=== PATIENT | female | born 1945 | race Caucasian/White ===

== ENCOUNTER 2018-06-04 14:31 | Inpatient (IN) | payer MEDICARE ==
[2018-06-04] MEDS ORDERED: Zithromax 500 MG/ 250 ML NaCl Premix 500 MG/250 ML IVPB IV STA (16:02)
[2018-06-04] MEDS ORDERED: PROVENTIL 2.5 MG/3 ML NEB IH ONE ×2 (16:02→16:17)
[2018-06-04] MEDS ORDERED: solu-MEDROL 125 MG IV ONE (16:02)
[2018-06-04] MEDS ORDERED: ROCEPHIN 1 Gm-D5w 50 ml Bag** 1 G/50 ML IVPB IV STA (16:02)
--- NOTE | 2018-06-04 16:10 | ERPHSYRPT ---
- History of Present Illness Time Seen by Provider: 06/04/18 15:00 Source: patient Exam Limitations: clinical condition Patient Subjective Stated Complaint: pt sent over to ER from Jose Ruby's office for SOB. pt has been treated for PNE for 4 days, has one more day of Levaquin left. wears 3L oxygen at home. o2 sat 80% at [facility] office pt reports oxygen tank was not working right and not getting oxygen when she first got to office. [facility] DISABILITIES SERVICES OFFICER placed patient on 3L with nonrebreather and sent to ER for admission - per daughter Triage Nursing Assessment: pt in ER waiting area with nonrebreather in place, removed NRB and placed o2 3L per n/c (pt wears at home) o2 sat 98%. resp labored , SOB, nonprod cough. states was coughing up green phlegm 3 days ago. wheezes noted right upper lobe, very diminished throughout. Physician History: PATIENT WITH A HISTORY OF COPD COMPLAINS OF A PRODUCTIVE COUGH, DIFFICULTY BREATHING AND PRODUCTIVE COUGH FOR 3-4 DAYS, ASSOCIATED WITH EXERTIONAL DYSPNEA DENIES CHEST PAIN, FEVER OR CHILLS. Timing/Duration: day(s) Activities at Onset: activity Severity of Dyspnea-Max: moderate Severity of Dyspnea-Current: moderate Possible Cause: occasional episodes, chronic episodes Modifying Factors: Improves With: coughing, exertion Associated Symptoms: cough, productive cough Allergies/Adverse Reactions: No Known Drug Allergies Allergy (Unverified 06/04/18 15:42) Home Medications: Albuterol 2.5 mg/3 ml Neb [Proventil 2.5 mg/3 ml Neb] 2.5 mg IH Q4H PRN PRN 06/04/18 [History] Albuterol 8 gm Mdi Hfa [Ventolin Hfa MDI] 90 mcg IH Q4-6HPRN PRN 06/04/18 [History] Allopurinol 300 mg [Zyloprim 300 mg] 300 mg PO DAILY 06/04/18 [History] Amlodipine Besylate 5 mg PO DAILY 06/04/18 [History] Ascorbic Acid [Vitamin C] 500 mg PO BID 06/04/18 [History] Cetirizine HCl [Allergy Relief] 10 mg PO DAILY 06/04/18 [History] Levothyroxine Sodium 75 mcg PO DAILY 06/04/18 [History] Potassium 99 mg PO BID 06/04/18 [History] Ranitidine HCl [Zantac] 150 mg PO DAILY 06/04/18 [History] Theophylline Anhydrous 300 mg* [Theodur 300MG] 300 mg PO DAILY 06/04/18 [ History] Tiotropium [place] Inhaler [Spiriva 18 Mcg/Cap Inhaler] 1 puff IH DAILY [History] Hx Tetanus, Diphtheria Vaccination/Date Given: No Hx Influenza Vaccination/Date Given: Yes Hx Pneumococcal Vaccination/Date Given: Yes Immunizations Up to Date: Yes - Review of Systems Constitutional: No Fever, No Chills Eyes: No Symptoms Ears, Nose, & Throat: No Symptoms Respiratory: Cough, Dyspnea on Exertion (GOMEZ), No Dyspnea Cardiac: No Symptoms, No Chest Pain, No Edema, No Syncope Abdominal/Gastrointestinal: Constipation, No Abdominal Pain, No Nausea, No Vomiting, No Diarrhea Genitourinary Symptoms: No Symptoms, No Dysuria Musculoskeletal: No Symptoms, No Back Pain, No Neck Pain Skin: No Rash Neurological: No Dizziness, No Focal Weakness, No Sensory Changes Psychological: No Symptoms Endocrine: No Symptoms All Other Systems: Reviewed and Negative - Past Medical History Pertinent Past Medical History: Yes Neurological History: No Pertinent History ENT History: Cataracts Cardiac History: No Pertinent History Respiratory History: COPD Endocrine Medical History: No Pertinent History Musculoskeletal History: Arthritis GI Medical History: No Pertinent History History: No Pertinent History Psycho-Social History: No Pertinent History Female Reproductive Disorders: No Pertinent History - Past Surgical History Past Surgical History: Yes Neuro Surgical History: No Pertinent History Cardiac: No Pertinent History Respiratory: No Pertinent History Gastrointestinal: No Pertinent History Female Surgical History: Hysterectomy, Other Other Surgical History: lumpectomy and radiation, states has cancer in right breast but cannot have surgery yet - Social History Smoking Status: Former smoker Exposure to second hand smoke: No Drug Use: none Patient Lives Alone: Yes - Nursing Vital Signs Nursing Vital Signs: Initial Vital Signs Temperature 98.3 F 06/04/18 14:32 Pulse Rate 80 06/04/18 14:32 Respiratory Rate 28 H 06/04/18 14:32 Blood Pressure 172/100 06/04/18 14:32 O2 Sat by Pulse Oximetry 99 06/04/18 14:32 Pain Scale Pain Intensity 0 - Physical Exam General Appearance: mild distress Eye Exam: PERRL/EOMI Ears, Nose, Throat Exam: hearing grossly normal Neck Exam: normal inspection Respiratory Exam: diminished breath sounds, wheezing Cardiovascular/Chest Exam: normal heart sounds Abdominal/Gastrointestinal Exam: soft Extremity Exam: non-tender, normal range of motion Peripheral Pulses Exam: carotid (R): 2+, carotid (L): 2+, femoral (R): 2+, femoral (L): 2+, dorsalis-pedis (R): 2+, dorsalis-pedis (L): 2+ Neurologic Exam: alert, normal mood/affect Skin Exam: normal color, diaphoresis SpO2 Interpretation: normal SpO2: 99 - Course EKG Interpreted by Me: RATE, Sinus Rhythm, Sinus Tach (RATE 96), NORMAL AXIS - Radiology Exams Chest X-ray Interpretation: Discussed w/ radiologist (PERIPHERAL RIGHT MIDDLE LOBE INFILTRATE/INFILTRATE) Ordered Tests: Active Orders 24 hr Category Date Time Status Corporate Planning Manager STAT Care 06/04/18 16:03 Active EKG-ER Only STAT Care 06/04/18 16:02 Active IV Insertion STAT Care 06/04/18 16:02 Active Oxygen-ED Only Nasal Cannula 2 lpm Care 06/04/18 16:02 Active CHEST 1 VIEW (PORTABLE) Stat Exams 06/04/18 16:03 Completed BLOOD CULTURE Stat Lab 06/04/18 16:40 Received BMP Stat Lab 06/04/18 16:45 Completed CBC W DIFF Stat Lab 06/04/18 16:45 Completed MAGNESIUM Stat Lab 06/04/18 16:45 Completed PT INR [PROTIME WITH INR] Stat Lab 06/04/18 16:45 Completed TROPONIN Q3H Lab 06/04/18 16:45 Completed TROPONIN Q3H Lab 06/04/18 19:15 Ordered TROPONIN Q3H Lab 06/04/18 22:15 Ordered TROPONIN Q3H Lab 06/05/18 01:15 Ordered TROPONIN Q3H Lab 06/05/18 04:15 Ordered Peak Expiratory Flow Rate ONCE RT 06/04/18 16:33 Active Respiratory Nebulizer STAT RT 06/04/18 16:04 Completed Respiratory Therapy Assessment DAILY RT 06/04/18 16:33 Active Transfer Order Routine Transfer 06/04/18 Ordered Medication Summary Generic Name Dose Route Start Last Admin Trade Name Freq PRN Reason Stop Dose Admin Sodium Chloride 1,000 mls @ 20 mls/hr 06/04/18 16:15 06/04/18 17:43 Sodium Chloride 0.9% 1000 Ml IV 07/04/18 16:14 20 mls/hr .Q24H [place] Administration Discontinued Medications Generic Name Dose Route Start Last Admin Trade Name Joseq PRN Reason Stop Dose Admin Albuterol Sulfate 10 mg 06/04/18 16:02 Proventil 2.5 Mg/3 Ml Neb IH 06/04/18 16:03 STAT ONE Albuterol Sulfate Confirm 06/04/18 16:17 Proventil 2.5 Mg/3 Ml Neb Administered 06/04/18 16:18 Dose 2.5 mg IH .STK-MED ONE Albuterol Sulfate Confirm 06/04/18 16:18 Proventil Solution 2.5 Mg/0.5 Ml Administered 06/04/18 16:19 Dose 10 mg IH .STK-MED ONE Albuterol Sulfate 10 mg 06/04/18 16:29 06/04/18 16:30 Proventil Solution 2.5 Mg/0.5 Ml IH 06/04/18 16:30 10 mg STAT ONE Administration Ceftriaxone Sodium/Dextrose 1 g in 50 mls @ 100 mls/hr 06/04/18 16:02 17:46 Rocephin 1 Gm-D5w 50 Ml Bag IV 06/04/18 16:31 100 ml/hr STAT STA 100 mls/hr Administration Azithromycin 500 mg in 250 mls @ 250 mls/hr 06/04/18 16:02 06/04/18 18:13 Zithromax 500 Mg/ 250 Ml Nacl Premix IV 06/04/18 17:01 250 ml/hr STAT STA 250 mls/hr Administration Ceftriaxone Sodium/Dextrose Confirm 06/04/18 17:38 Rocephin 1 Gm-D5w 50 Ml Bag Administered 06/04/18 17:39 Dose 1 g in 50 mls @ ud IV .STK-MED ONE Azithromycin Confirm 06/04/18 18:11 Zithromax 500 Mg/ 250 Ml Nacl Premix Administered 06/04/18 18:12 Dose 500 mg in 250 mls @ ud IV .STK-MED ONE Levalbuterol HCl 1.25 mg 06/04/18 18:20 Xopenex 1.25 Mg/0.5 Ml Ud Nebule IH 06/04/18 18:21 STAT ONE Levalbuterol HCl Confirm 06/04/18 18:25 Xopenex 1.25 Mg/0.5 Ml Ud Nebule Administered 06/04/18 18:26 Dose 1.25 mg IH .STK-MED ONE Methylprednisolone Sodium Succinate 125 mg 06/04/18 16:02 06/04/18 17:44 Solu-Medrol 125 Mg IV 06/04/18 16:03 125 mg STAT ONE Administration Methylprednisolone Sodium Succinate Confirm 06/04/18 17:38 Solu-Medrol 125 Mg Administered 06/04/18 17:39 Dose 125 mg .ROUTE .STK-MED ONE Sodium Chloride Confirm 06/04/18 16:18 Sodium Chloride 3 Ml Ud Nebules Administered 06/04/18 16:19 Dose 9 ml IH .STK-MED ONE Sodium Chloride 7 ml 06/04/18 16:38 06/04/18 16:39 Sodium Chloride 3 Ml Ud Nebules IH 06/04/18 16:39 7 ml STAT ONE Administration Lab/Rad Data: Laboratory Result Diagrams 06/04/18 16:45 06/04/18 16:45 Laboratory Results 06/04/18 06/04/18 06/04/18 Range/Units 16:45 16:45 16:45 WBC (4.0-10.5) K/mm3 RBC (4.1-5.4) M/mm3 Hgb (12.0-16.0) gm/dl Hct (35-47) % MCV (78-100) fl MCH (26-32) pg MCHC (32-36) g/dl RDW (11.5-14.0) % Plt Count (150-450) K/mm3 MPV (6-9.5) fl Gran % (36.0-66.0) % Eos # (Auto) (0-0.5) Absolute Lymphs (auto) (1.0-4.6) Absolute Monos (auto) (0.0-1.3) Lymphocytes % (24.0-44.0) % Monocytes % (0.0-12.0) % Eosinophils % (0.00-5.0) % Basophils % (0.0-0.4) % Absolute Granulocytes (1.4-6.9) Basophils # (0-0.4) PT 14.1 H (9.95-12.35) SECONDS INR 1.21 (0.8-3.0) Sodium 142 (137-145) mmol/L Potassium 3.6 (3.5-5.1) mmol/L Chloride 101 (98-107) mmol/L Carbon Dioxide 34 H (22-30) mmol/L Anion Gap 10.4 (5-15) MEQ/L BUN 24 H (7-17) mg/dL Creatinine 1.44 H (0.52-1.04) mg/dL Estimated GFR 37.8 ML/MIN Glucose 104 (74-106) mg/dL Calcium 8.7 (8.4-10.2) mg/dL Magnesium 1.8 (1.6-2.3) mg/dL Troponin I < 0.012 (0.000-0.034) ng/mL 06/04/18 Range/Units 16:45 WBC 4.9 (4.0-10.5) K/mm3 RBC 4.06 L (4.1-5.4) M/mm3 Hgb 12.0 (12.0-16.0) gm/dl Hct 38.5 (35-47) % MCV 94.8 (78-100) fl MCH 29.5 (26-32) pg MCHC 31.2 L (32-36) g/dl RDW 15.2 H (11.5-14.0) % Plt Count 164 (150-450) K/mm3 MPV 11.7 H (6-9.5) fl Gran % 63.9 (36.0-66.0) % Eos # (Auto) 0.14 (0-0.5) Absolute Lymphs (auto) 1.03 (1.0-4.6) Absolute Monos (auto) 0.58 (0.0-1.3) Lymphocytes % 21.1 L (24.0-44.0) % Monocytes % 11.9 (0.0-12.0) % Eosinophils % 2.9 (0.00-5.0) % Basophils % 0.2 (0.0-0.4) % Absolute Granulocytes 3.13 (1.4-6.9) Basophils # 0.01 (0-0.4) PT (9.95-12.35) SECONDS INR (0.8-3.0) Sodium (137-145) mmol/L Potassium (3.5-5.1) mmol/L Chloride (98-107) mmol/L Carbon Dioxide (22-30) mmol/L Anion Gap (5-15) MEQ/L BUN (7-17) mg/dL Creatinine (0.52-1.04) mg/dL Estimated GFR ML/MIN Glucose (74-106) mg/dL Calcium (8.4-10.2) mg/dL Magnesium (1.6-2.3) mg/dL Troponin I (0.000-0.034) ng/mL - Progress Progress: improved Air Movement: fair Progress Note: 06/04/18 16:09 ADMINISTERED CONTINUOUS NEBULIZER ALBUTEROL 10MG OVER 1 HOUR. IV NORMAL SALINE 20ML/HR, SOLUMEDROL 125MG IV, IV ZITHROMAX 500MG, ROCEPHIN 1GM IVPB. Blood Culture(s) Obtained: Yes Antibiotics given: Yes Discussed with Dr.: Mason (DISCUSSED WITH DR MASON AT 1804 FOR ADMISSION) - Departure Time of Disposition: 18:35 Departure Disposition: Observation Clinical Impression: EXACERBATION COPD, PNEUMONIA Condition: Stable Critical Care Time: No Referrals: BELLA CORMIER MD [Primary Care Provider] -
[2018-06-04] MEDS ORDERED: Sodium Chloride 3 ML UD NEBULES IH ONE ×2 (16:18→16:38)
[2018-06-04] MEDS ORDERED: PROVENTIL Solution 2.5 MG/0.5 ML IH ONE ×2 (16:18→16:29)
--- NOTE | 2018-06-04 16:39 | XRAY ---
Indication: Dyspnea. Comparison: June 01, 2018. Portable chest again demonstrates peripheral right middle lobe infiltrate/atelectasis less than before. Remaining heart and left lung normal.
[2018-06-04 17:02] LABS: BASOPHIL % 0.2 % (0.0-0.4); Basophil (Absolute #) 0.01 (0-0.4); Eosinophil % 2.9 % (0.00-5.0); Eosinophil (Absolute #) 0.14 (0-0.5); Granulocyte Absolute (ANC) 3.13 (1.4-6.9); Granulocytes % 63.9 % (36.0-66.0); Hematocrit 38.5 % (35-47); Lymphocyte (Absolute #) 1.03 (1.0-4.6); Lymphocytes % 21.1 % (24.0-44.0); Mean Cell Volume 94.8 fl (78-100); Mean Corpuscular Hgb Concent. 31.2 g/dl (32-36); Mean Platelet Volume 11.7 fl (6-9.5); Monocyte (Absolute #) 0.58 (0.0-1.3); Monocytes % 11.9 % (0.0-12.0); Platelet Count 164 K/mm3 (150-450); Red Blood Count 4.06 M/mm3 (4.1-5.4); Red Cell Distribution Width 15.2 % (11.5-14.0); White Blood Count 4.9 K/mm3 (4.0-10.5)
[2018-06-04 17:05] LABS: Mean Corpuscular Hemoglobin 29.5 pg (26-32)
[2018-06-04 17:22] LABS: INR 1.21 (0.8-3.0); PROTIME 14.1 SECONDS (9.95-12.35)
[2018-06-04 17:31] LABS: ANION GAP 10.4 MEQ/L (5-15); Calcium 8.7 mg/dL (8.4-10.2); Creatinine 1 1.44 mg/dL (0.52-1.04); MAGNESIUM 1.8 mg/dL (1.6-2.3); Potassium 3.6 mmol/L (3.5-5.1)
[2018-06-04] MEDS ORDERED: solu-MEDROL 125 MG ONE (17:38)
[2018-06-04] MEDS ORDERED: ROCEPHIN 1 Gm-D5w 50 ml Bag** 1 G/50 ML IVPB IV ONE (17:38)
[2018-06-04] MEDS: Sodium Chloride 0.9% 1000 ML 1,000 ML IV SCH (17:43)
[2018-06-04] MEDS ORDERED: Zithromax 500 MG/ 250 ML NaCl Premix 500 MG/250 ML IVPB IV ONE (18:11)
[2018-06-04] MEDS ORDERED: Xopenex 1.25 MG/0.5 ML UD NEBULE IH ONE ×2 (18:20→18:25)
[2018-06-04 18:30] LABS: INFLUENZA A NEGATIVE (NEGATIVE); INFLUENZA B NEGATIVE (NEGATIVE); RESPIRATORY SYNCTIAL VIRUS NEGATIVE (Negative)
[2018-06-04] MEDS ORDERED: Xopenex 1.25 MG/0.5 ML UD NEBULE IH PRN (20:09)
[2018-06-04] MEDS: PROVENTIL 2.5 MG/3 ML NEB IH SCH (22:56)
[2018-06-04] MEDS: Klor Con 10 MEQ PO SCH (23:08)
[2018-06-04] MEDS: solu-MEDROL 125 MG IV SCH (23:20)
[2018-06-05] MEDS: PROVENTIL 2.5 MG/3 ML NEB IH SCH ×6 (02:46→23:47)
[2018-06-05] MEDS: Spiriva 18 Mcg/Cap Inhaler IH SCH (06:25)
[2018-06-05] MEDS: solu-MEDROL 125 MG IV SCH ×4 (06:43→23:25)
--- NOTE | 2018-06-05 08:27 | PCM.HP ---
History of Present Illness - Chief Complaint Chief Complaint: Exac COPD, PNE History of Present Illness: is a 73 year old female pt of Dr. Angela with COPD, R breast cancer (dx 12/2017, unable to have mastectomy, not in tx), chronic renal dz, HTN, hypothyroid, osteoarthritis, gout, and anxiety who came to ER from office ([facility]) with RML infiltrate and COPD exacerbation. She had been to on and dx (apparently clinically) with influenza A. CXR was done and then keith was called in (pt says she took the med). She has been feeling SOB with cough and fever x 1 week. Had diarrhea yesterday , which has resolved. Thinks she has some urinary retention due to cystocele which has not been repaired. Thinks urine was darker recently. C/o LE edema bilat recently which is worse than usual. This morning she got up to go to the bathroom but had to use a bedpan because of weakness and SOB. - Review of Systems Constitutional: Fever, Weakness Respiratory: Cough (prod green sputum), Short Of Breath Cardiac: Edema Abdominal/Gastrointestinal: Diarrhea Genitourinary Symptoms: Urinary Retention Psychological: No Anxiety, No Depression, No Suicidal Ideations All Other Systems: Reviewed and Negative Medications & Allergies Home Medications: Home Medication List Albuterol 2.5 mg/3 ml Neb [Proventil 2.5 mg/3 ml Neb] 2.5 mg IH Q4H PRN PRN 06/04/18 [History Confirmed 06/04/18] Albuterol 8 gm Mdi Hfa [Ventolin Hfa MDI] 90 mcg IH Q4-6HPRN PRN 06/04/18 [History Confirmed 06/04/18] Allopurinol 300 mg [Zyloprim 300 mg] 300 mg PO DAILY 06/04/18 [History Confirmed 06/04/18] Amlodipine Besylate 5 mg PO DAILY 06/04/18 [History Confirmed 06/04/18] Ascorbic Acid [Vitamin C] 500 mg PO BID 06/04/18 [History Confirmed 06/04/18] Cetirizine HCl [Allergy Relief] 10 mg PO DAILY PRN 06/04/18 [History Confirmed 06/04/18] Levothyroxine Sodium 75 mcg PO DAILY 06/04/18 [History Confirmed 06/04/18] Potassium 99 mg PO BID 06/04/18 [History Confirmed 06/04/18] Prednisone 10 mg [Deltasone 10 mg] 5 mg PO UD 06/04/18 [History Confirmed 06/04/18] Ranitidine HCl [Zantac] 150 mg PO DAILY 06/04/18 [History Confirmed 06/04/18] Theophylline Anhydrous 300 mg* [Theodur 300MG] 300 mg PO DAILY 06/04/18 [ History Confirmed 06/04/18] Tiotropium [place] Inhaler [Spiriva 18 Mcg/Cap Inhaler] 1 puff IH DAILY [History Confirmed 06/04/18] Allergies/Adverse Reactions: Allergies Allergy/AdvReac Type Severity Reaction Status Date / Time No Known Drug Allergies Allergy Unverified 06/04/18 15:42 - Past Medical History Past Medical History: Yes Neurological History: No Pertinent History ENT History: Cataracts Cardiac History: No Pertinent History Respiratory History: COPD Endocrine Medical History: No Pertinent History Musculoskelatal History: Arthritis GI Medical History: No Pertinent History History: No Pertinent History Pyscho-Social History: No Pertinent History Reproductive Disorders: No Pertinent History Comment: Breast CA - Female History Are you now?: No (hyst) - Past Surgical History Past Surgical History: Yes Neuro Surgical History: No Pertinent History Cardiac History: No Pertinent History Respiratory Surgery: No Pertinent History GI Surgical History: No Pertinent History Female Surgical History: Hysterectomy, Lumpectomy Other Surgical History: lumpectomy and radiation, states has cancer in right breast but cannot have surgery yet - Social History Smoking Status: Former smoker Exposure to second hand smoke: No Alcohol: None Drug Use: none - Physical Exam Vital Signs: Vital Signs - 24 hr Temp Pulse Resp BP Pulse Ox 06/05/18 07:30 91 H 20 97 06/05/18 07:27 98.6 F 98 H 19 142/76 96 06/05/18 04:00 25 H 06/05/18 03:04 97.9 F 88 25 H 144/69 96 06/05/18 02:47 90 18 96 06/05/18 00:00 98.7 F 87 30 H 144/72 95 06/04/18 23:21 98.4 F 94 H 26 H 167/80 90 L 06/04/18 22:57 85 24 96 06/04/18 20:59 97 06/04/18 20:55 91 H 97 06/04/18 20:09 90 L 06/04/18 18:40 97 H 18 153/88 100 06/04/18 18:30 84 20 96 06/04/18 18:29 99 06/04/18 16:33 82 24 98 06/04/18 14:32 98.3 F 80 28 H 172/100 99 Oxygen-Last 24 hours O2 Percentage 4 Liters = 36% O2 Percentage 4 Liters = 36% O2 Percentage 4 Liters = 36% O2 Percentage 4 Liters = 36% O2 Percentage 3 Liters = 32% O2 Percentage 3 Liters = 32% Oxygen Flowrate (L/min)-RT 4 General Appearance: no apparent distress, alert, obese Neurologic Exam: oriented x 3, cooperative Eye Exam: eyes nml inspection Ears, Nose, Throat Exam: moist mucous membranes Neck Exam: normal inspection, non-tender, No lymphadenopathy Respiratory Exam: diminished breath sounds (poor-fair air exchange), prolonged expirations, wheezing (throughout), No crackles/rales, No rhonchi Cardiovascular Exam: regular rate/rhythm, normal heart sounds, No murmur Gastrointestinal/Abdomen Exam: soft, normal bowel sounds, tenderness (epigastrum ), No distention, No mass, No guarding, No rebound Extremity Exam: normal inspection, No pedal edema, No swelling Results - Labs Lab/Micro Results: Lab Results-Last 24 Hours 06/04/18 06/04/18 06/04/18 Range/Units 16:45 16:45 16:45 WBC 4.9 (4.0-10.5) K/mm3 RBC 4.06 L (4.1-5.4) M/mm3 Hgb 12.0 (12.0-16.0) gm/dl Hct 38.5 (35-47) % MCV 94.8 (78-100) fl MCH 29.5 (26-32) pg MCHC 31.2 L (32-36) g/dl RDW 15.2 H (11.5-14.0) % Plt Count 164 (150-450) K/mm3 MPV 11.7 H (6-9.5) fl Gran % 63.9 (36.0-66.0) % Eos # (Auto) 0.14 (0-0.5) Absolute Lymphs (auto) 1.03 (1.0-4.6) Absolute Monos (auto) 0.58 (0.0-1.3) Lymphocytes % 21.1 L (24.0-44.0) % Monocytes % 11.9 (0.0-12.0) % Eosinophils % 2.9 (0.00-5.0) % Basophils % 0.2 (0.0-0.4) % Absolute Granulocytes 3.13 (1.4-6.9) Basophils # 0.01 (0-0.4) PT (9.95-12.35) SECONDS INR (0.8-3.0) Sodium 142 (137-145) mmol/L Potassium 3.6 (3.5-5.1) mmol/L Chloride 101 (98-107) mmol/L Carbon Dioxide 34 H (22-30) mmol/L Anion Gap 10.4 (5-15) MEQ/L BUN 24 H (7-17) mg/dL Creatinine 1.44 H (0.52-1.04) mg/dL Estimated GFR 37.8 ML/MIN Glucose 104 (74-106) mg/dL Calcium 8.7 (8.4-10.2) mg/dL Magnesium 1.8 (1.6-2.3) mg/dL Troponin I < 0.012 (0.000-0.034) ng/mL Influenza Type A Ag (NEGATIVE) Influenza Type B Ag (NEGATIVE) RSV (PCR) (Negative) 06/04/18 06/04/18 06/04/18 Range/Units 16:45 17:15 18:55 WBC (4.0-10.5) K/mm3 RBC (4.1-5.4) M/mm3 Hgb (12.0-16.0) gm/dl Hct (35-47) % MCV (78-100) fl MCH (26-32) pg MCHC (32-36) g/dl RDW (11.5-14.0) % Plt Count (150-450) K/mm3 MPV (6-9.5) fl Gran % (36.0-66.0) % Eos # (Auto) (0-0.5) Absolute Lymphs (auto) (1.0-4.6) Absolute Monos (auto) (0.0-1.3) Lymphocytes % (24.0-44.0) % Monocytes % (0.0-12.0) % Eosinophils % (0.00-5.0) % Basophils % (0.0-0.4) % Absolute Granulocytes (1.4-6.9) Basophils # (0-0.4) PT 14.1 H (9.95-12.35) SECONDS INR 1.21 (0.8-3.0) Sodium (137-145) mmol/L Potassium (3.5-5.1) mmol/L Chloride (98-107) mmol/L Carbon Dioxide (22-30) mmol/L Anion Gap (5-15) MEQ/L BUN (7-17) mg/dL Creatinine (0.52-1.04) mg/dL Estimated GFR ML/MIN Glucose (74-106) mg/dL Calcium (8.4-10.2) mg/dL Magnesium (1.6-2.3) mg/dL Troponin I < 0.012 (0.000-0.034) ng/mL Influenza Type A Ag NEGATIVE (NEGATIVE) Influenza Type B Ag NEGATIVE (NEGATIVE) RSV (PCR) NEGATIVE (Negative) 06/04/18 06/05/18 06/05/18 Range/Units 22:17 01:15 04:15 WBC (4.0-10.5) K/mm3 RBC (4.1-5.4) M/mm3 Hgb (12.0-16.0) gm/dl Hct (35-47) % MCV (78-100) fl MCH (26-32) pg MCHC (32-36) g/dl RDW (11.5-14.0) % Plt Count (150-450) K/mm3 MPV (6-9.5) fl Gran % (36.0-66.0) % Eos # (Auto) (0-0.5) Absolute Lymphs (auto) (1.0-4.6) Absolute Monos (auto) (0.0-1.3) Lymphocytes % (24.0-44.0) % Monocytes % (0.0-12.0) % Eosinophils % (0.00-5.0) % Basophils % (0.0-0.4) % Absolute Granulocytes (1.4-6.9) Basophils # (0-0.4) PT (9.95-12.35) SECONDS INR (0.8-3.0) Sodium (137-145) mmol/L Potassium (3.5-5.1) mmol/L Chloride (98-107) mmol/L Carbon Dioxide (22-30) mmol/L Anion Gap (5-15) MEQ/L BUN (7-17) mg/dL Creatinine (0.52-1.04) mg/dL Estimated GFR ML/MIN Glucose (74-106) mg/dL Calcium (8.4-10.2) mg/dL Magnesium (1.6-2.3) mg/dL Troponin I < 0.012 < 0.012 < 0.012 (0.000-0.034) ng/mL Influenza Type A Ag (NEGATIVE) Influenza Type B Ag (NEGATIVE) RSV (PCR) (Negative) - Radiology Impressions Radiology Exams & Impressions: Radiology Procedures Category Date Time Status CHEST 1 VIEW (PORTABLE) Stat Exams 06/04/18 16:03 Completed - Other Procedures and Tests Respiratory Therapy 06/04/18 16:33 Peak Expiratory Flow Rate ONCE 06/04/18 20:09 Oxygen Nasal Cannula 2 lpm 06/04/18 21:21 Respiratory Therapy Assessment DAILY Assessment/Plan (1) Pneumonia Current Visit: Yes Status: Acute Qualifiers: Pneumonia type: due to unspecified organism Laterality: right Lung location: middle lobe of lung Qualified Code(s): J18.1 - Lobar pneumonia, unspecified organism Assessment & Plan: will order sputum cx. On IV rocephin and zithromax day #2. Methylprednisolone 80mg IV q6h. Code(s): J18.9 - PNEUMONIA, UNSPECIFIED ORGANISM (2) COPD exacerbation Current Visit: Yes Status: Acute Assessment & Plan: Sees Dr. ferguson from [place] [facility]. Code(s): J44.1 - CHRONIC OBSTRUCTIVE PULMONARY DISEASE W (ACUTE) EXACERBATION (3) Renal insufficiency Current Visit: Yes Status: Acute Assessment & Plan: recheck labs in a.m. Cr is actually better than in 2017 when her cr was 1.65 ( now 1.44).Pt would be fine being referred to Dr. Muñoz at [facility] when discharged. (4) Breast cancer Current Visit: Yes Status: Acute Qualifiers: Breast location: unspecified site of breast Estrogen receptor status: negative Patient sex: female Laterality: right Qualified Code(s): C50.911 - Malignant neoplasm of unspecified site of right female breast; Z17.1 - Estrogen receptor negative status [ER-] Assessment & Plan: Pt was supposed to have a mastectomy in Feb but her lung doctor didn't thinkshe could liv surgery. (5) Failure of outpatient treatment Current Visit: Yes Status: Acute Code(s): Z78.9 - OTHER SPECIFIED HEALTH STATUS (6) Leg edema Current Visit: Yes Status: Acute Assessment & Plan: will do echocardiogram. Code(s): R60.0 - LOCALIZED EDEMA (7) Shortness of breath Current Visit: Yes Status: Acute Assessment & Plan: troponins neg x 5 Code(s): R06.02 - SHORTNESS OF BREATH
[2018-06-05] MEDS ORDERED: Zithromax 500 MG/ 250 ML NaCl Premix 500 MG/250 ML IVPB IV SCH (10:00)
[2018-06-05] MEDS ORDERED: ROCEPHIN 1 Gm-D5w 50 ml Bag** 1 G/50 ML IVPB IV SCH (10:00)
[2018-06-05] MEDS ORDERED: NON-FORMULARY ITEM (Cetirizine Hcl [Allergy Relief] 10 MG) PO PRN (10:25)
[2018-06-05] MEDS ORDERED: CLARITIN 10 MG PO PRN (10:27)
[2018-06-05] MEDS: ENOXAPARIN SODIUM SQ SCH (10:54)
[2018-06-05] MEDS: ZYLOPRIM 300 MG PO SCH (10:55)
[2018-06-05] MEDS: THEOPHYLLINE ER 24HR PO SCH (10:55)
[2018-06-05] MEDS: SYNTHROID 75 MCG PO SCH (10:55)
[2018-06-05] MEDS: Pepcid 20 MG PO SCH (10:55)
[2018-06-05] MEDS: Klor Con 10 MEQ PO SCH ×2 (10:55→21:47)
[2018-06-05] MEDS: NORVASC 5 MG PO SCH (10:56)
[2018-06-05] MEDS ORDERED: Phenergan 25 MG INJ IV PRN (13:24)
[2018-06-06] MEDS: PROVENTIL 2.5 MG/3 ML NEB IH SCH ×6 (03:55→23:05)
[2018-06-06 05:54] LABS: Hematocrit 34.1 % (35-47); Hemoglobin 10.7 gm/dl (12.0-16.0); Mean Cell Volume 93.2 fl (78-100); Mean Corpuscular Hemoglobin 29.2 pg (26-32); Mean Corpuscular Hgb Concent. 31.4 g/dl (32-36); Mean Platelet Volume 11.5 fl (6-9.5); Platelet Count 186 K/mm3 (150-450); Red Blood Count 3.66 M/mm3 (4.1-5.4); Red Cell Distribution Width 15.4 % (11.5-14.0); White Blood Count 12.8 K/mm3 (4.0-10.5)
[2018-06-06 06:01] LABS: ANION GAP 11.6 MEQ/L (5-15); Creatinine 1 1.12 mg/dL (0.52-1.04); Potassium 3.5 mmol/L (3.5-5.1)
[2018-06-06] MEDS: solu-MEDROL 125 MG IV SCH ×4 (06:24→23:33)
[2018-06-06] MEDS: Spiriva 18 Mcg/Cap Inhaler IH SCH ×2 (06:53→07:37)
--- NOTE | 2018-06-06 08:40 | PCM.NOTE ---
Date and Time: 06/06/18834 Subjective Assessment: Pt states she is feeling well, had a choking episode this morning that left her short of breath. Maya po. She is visibly short of breath. - Review of Systems Constitutional: No Fever Respiratory: Cough, Short Of Breath Objective Exam General Appearance: no apparent distress, alert, obese Neurologic Exam: oriented x 3, cooperative Skin Exam: normal color, warm, dry, No rash Respiratory Exam: diminished breath sounds (poor air exchange), prolonged expirations, wheezing (slight scattered), other (tachypneic), No crackles/rales , No rhonchi Cardiovascular Exam: regular rate/rhythm, normal heart sounds, No murmur Extremity Exam: normal inspection, No pedal edema, No swelling OBJECTIVE DATA Vital Signs: Vital Signs - 24 hr Temp Pulse Resp BP Pulse Ox 06/06/18 07:18 97.7 F 100 H 20 138/90 97 06/06/18 07:16 101 H 22 97 06/06/18 04:00 98.1 F 100 H 16 145/67 97 06/06/18 03:55 100 H 16 97 06/06/18 00:17 98.6 F 105 H 20 133/74 96 06/06/18 00:00 20 06/05/18 23:47 102 H 32 H 97 06/05/18 21:21 98 F 110 H 37 H 160/75 96 06/05/18 20:00 20 06/05/18 17:28 106 H 20 97 06/05/18 16:00 18 06/05/18 15:51 98.5 F 103 H 18 126/60 91 L 06/05/18 15:18 101 H 24 96 06/05/18 14:14 99 H 20 96 06/05/18 12:00 97.5 F 101 H 19 133/69 99 Oxygen-Last 24 hours O2 Percentage 4 Liters = 36% O2 Percentage 4 Liters = 36% O2 Percentage 4 Liters = 36% O2 Percentage 4 Liters = 36% O2 Percentage 4 Liters = 36% O2 Percentage 4 Liters = 36% Pain Assessment - Last Documented Pain Intensity 0 Pain Scale Used FLACC Intake and Output: Intake & Output 06/03/18 06/04/18 06/05/18 06/06/18 11:59 11:59 11:59 11:59 Intake Total 449 1390 Output Total 200 1020 Balance 249 370 Weight 75.7 kg Lab Results: Lab Results-Last 24 Hours 06/06/18 06/06/18 Range/Units 05:20 05:20 WBC 12.8 H (4.0-10.5) K/mm3 RBC 3.66 L (4.1-5.4) M/mm3 Hgb 10.7 L (12.0-16.0) gm/dl Hct 34.1 L (35-47) % MCV 93.2 (78-100) fl MCH 29.2 (26-32) pg MCHC 31.4 L (32-36) g/dl RDW 15.4 H (11.5-14.0) % Plt Count 186 (150-450) K/mm3 MPV 11.5 H (6-9.5) fl Sodium 140 (137-145) mmol/L Potassium 3.5 (3.5-5.1) mmol/L Chloride 107 (98-107) mmol/L Carbon Dioxide 26 (22-30) mmol/L Anion Gap 11.6 (5-15) MEQ/L BUN 27 H (7-17) mg/dL Creatinine 1.12 H (0.52-1.04) mg/dL Estimated GFR 50.5 ML/MIN Glucose 237 H (74-106) mg/dL Calcium 9.0 (8.4-10.2) mg/dL Radiology Exams: Radiology Procedures Category Date Time Status CHEST 1 VIEW (PORTABLE) Stat Exams 06/04/18 16:03 Completed ECHO W/2D AND DOPPLER [US] Routine Exams 06/05/18 10:05 Taken Assessment/Plan (1) Pneumonia Current Visit: Yes Status: Acute Qualifiers: Pneumonia type: due to unspecified organism Laterality: right Lung location: middle lobe of lung Qualified Code(s): J18.1 - Lobar pneumonia, unspecified organism Assessment & Plan: Clinically not much better this morning. changed IV rocephin and zithromax to IV levaquin. on solumedrol 80mg IV q6h. Code(s): J18.9 - PNEUMONIA, UNSPECIFIED ORGANISM (2) COPD exacerbation Current Visit: Yes Status: Acute Assessment & Plan: on tiotropium inhaler and theophylline po. Code(s): J44.1 - CHRONIC OBSTRUCTIVE PULMONARY DISEASE W (ACUTE) EXACERBATION (3) Shortness of breath Current Visit: Yes Status: Acute Assessment & Plan: D-dimer ordered stat. If positive will need VQ scan. Currently on lovenox 30mg SQ daily. Code(s): R06.02 - SHORTNESS OF BREATH (4) Renal insufficiency Current Visit: Yes Status: Chronic Assessment & Plan: improved eGFR today (5) Breast cancer Current Visit: Yes Status: Acute Qualifiers: Breast location: unspecified site of breast Estrogen receptor status: negative Patient sex: female Laterality: right Qualified Code(s): C50.911 - Malignant neoplasm of unspecified site of right female breast; Z17.1 - Estrogen receptor negative status [ER-] (6) Failure of outpatient treatment Current Visit: Yes Status: Acute Code(s): Z78.9 - OTHER SPECIFIED HEALTH STATUS (7) Leg edema Current Visit: Yes Status: Acute Assessment & Plan: echo pending Code(s): R60.0 - LOCALIZED EDEMA
[2018-06-06] MEDS: SYNTHROID 75 MCG PO SCH (09:12)
[2018-06-06] MEDS: NORVASC 5 MG PO SCH (09:12)
[2018-06-06] MEDS: ENOXAPARIN SODIUM SQ SCH ×2 (09:12→17:21)
[2018-06-06] MEDS: Pepcid 20 MG PO SCH (09:12)
[2018-06-06] MEDS: Klor Con 10 MEQ PO SCH ×2 (09:12→23:33)
[2018-06-06] MEDS: ZYLOPRIM 300 MG PO SCH (09:12)
[2018-06-06] MEDS: THEOPHYLLINE ER 24HR PO SCH (09:13)
[2018-06-06] MEDS: Levofloxacin 500MG/100ML D5W 500 MG/100 ML BAG IV SCH (09:20)
[2018-06-06] MEDS ORDERED: NON-FORMULARY ITEM (Ranitidine Hcl [Zantac] 150 MG) PO SCH (10:00)
[2018-06-06] MEDS ORDERED: PHARMACY DOSING REQUEST MC ONE (10:08)
[2018-06-06] MEDS ORDERED: ENOXAPARIN SODIUM SQ ONE (10:43)
--- NOTE | 2018-06-06 13:21 | ECHO ---
Transthoracic echocardiographic examination and color Doppler was done on 06/05/2018. INDICATION: Shortness of breath, hypertension. The left ventricle was poorly visualized. The estimated global left ventricular ejection fraction is probably in the range of about 50%. There appears to be some mild left ventricular hypertrophy. The mitral valve was not visualized. Left atrium is also not visualized. The aortic valve is poorly visualized. There is a peak systolic gradient of 17 mm of Mercury along the left ventricular outflow tract. The right side chambers are not well visualized. There appears to be some trace tricuspid regurgitation. Right ventricular systolic pressure is 36 mm of Mercury. IMPRESSION: THIS IS A FAIRLY LIMITED STUDY WHICH PRECLUDES ADEQUATE ASSESSMENT OF INTRACARDIAC ANATOMY AND PHYSIOLOGY.
[2018-06-06] MEDS: Sodium Chloride 0.9% 1000 ML 1,000 ML IV SCH ×2 (17:21→17:22)
[2018-06-06] MEDS: ZOLOFT 50 MG TABLET PO SCH (23:33)
[2018-06-07] MEDS: PROVENTIL 2.5 MG/3 ML NEB IH SCH ×6 (02:48→22:52)
[2018-06-07] MEDS: solu-MEDROL 125 MG IV SCH ×3 (05:42→18:17)
[2018-06-07 06:22] LABS: Hematocrit 34.4 % (35-47); Hemoglobin 10.7 gm/dl (12.0-16.0); Mean Corpuscular Hemoglobin 28.9 pg (26-32); Mean Corpuscular Hgb Concent. 31.1 g/dl (32-36); Platelet Count 217 K/mm3 (150-450); Red Cell Distribution Width 15.8 % (11.5-14.0); White Blood Count 17.4 K/mm3 (4.0-10.5)
[2018-06-07 06:32] LABS: ANION GAP 9.7 MEQ/L (5-15); Calcium 9.1 mg/dL (8.4-10.2); Creatinine 1 1.28 mg/dL (0.52-1.04); Potassium 3.8 mmol/L (3.5-5.1)
[2018-06-07] MEDS: Spiriva 18 Mcg/Cap Inhaler IH SCH (07:03)
--- NOTE | 2018-06-07 08:29 | PCM.NOTE ---
Date and Time: 06/07/18823 Subjective Assessment: Pt is feeling better today, less SOB. However, RT notes that just moving from her bed to bathroom made her extremely short of breath. VQ scan is pending. - Review of Systems Constitutional: No Fever Respiratory: Cough, Short Of Breath Objective Exam General Appearance: no apparent distress, alert, obese Neurologic Exam: oriented x 3, cooperative Skin Exam: normal color, warm, dry, No rash Respiratory Exam: diminished breath sounds (fair air exchange), prolonged expirations, wheezing (scattered), No crackles/rales, No rhonchi Cardiovascular Exam: regular rate/rhythm, normal heart sounds, No murmur Gastrointestinal/Abdomen Exam: soft, No tenderness Extremity Exam: normal inspection, No pedal edema, No swelling Back Exam: normal inspection, No rash OBJECTIVE DATA Vital Signs: Vital Signs - 24 hr Temp Pulse Resp BP Pulse Ox 06/07/18 08:12 149/70 06/07/18 07:28 112 H 26 H 91 L 06/07/18 07:00 98 F 112 H 26 H 190/91 91 L 06/07/18 04:00 20 06/07/18 03:00 98.2 F 99 H 20 160/73 97 06/07/18 02:48 99 H 20 97 06/07/18 00:00 24 06/06/18 23:05 110 H 24 97 06/06/18 23:00 98.6 F 113 H 20 147/77 96 06/06/18 20:00 29 H 06/06/18 19:55 98.1 F 115 H 29 H 135/77 95 06/06/18 19:36 109 H 32 H 96 06/06/18 16:48 98 F 114 H 20 141/76 96 06/06/18 16:00 20 06/06/18 15:55 110 H 20 96 06/06/18 13:11 97.6 F 112 H 20 132/93 92 L 06/06/18 12:00 22 06/06/18 10:47 106 H 20 96 Oxygen-Last 24 hours O2 Percentage 4 Liters = 36% O2 Percentage 4 Liters = 36% O2 Percentage 4 Liters = 36% O2 Percentage 4 Liters = 36% O2 Percentage 4 Liters = 36% O2 Percentage 4 Liters = 36% Pain Assessment - Last Documented Pain Intensity 0 Pain Scale Used 0-10 Pain Scale Intake and Output: Intake & Output 06/04/18 06/05/18 06/06/18 06/07/18 11:59 11:59 11:59 11:59 Intake Total 449 1750 2100 Output Total 200 1320 600 Balance 269 373 2983 Weight 75.7 kg 74.2 kg Lab Results: Lab Results-Last 24 Hours 06/06/18 06/07/18 06/07/18 Range/Units 05:00 05:35 05:35 WBC 17.4 H (4.0-10.5) K/mm3 RBC 3.70 L (4.1-5.4) M/mm3 Hgb 10.7 L (12.0-16.0) gm/dl Hct 34.4 L (35-47) % MCV 93.0 (78-100) fl MCH 28.9 (26-32) pg MCHC 31.1 L (32-36) g/dl RDW 15.8 H (11.5-14.0) % Plt Count 217 (150-450) K/mm3 MPV 12.0 H (6-9.5) fl D-Dimer 640 H* (215-500) ng/mL Sodium 141 (137-145) mmol/L Potassium 3.8 (3.5-5.1) mmol/L Chloride 109 H (98-107) mmol/L Carbon Dioxide 26 (22-30) mmol/L Anion Gap 9.7 (5-15) MEQ/L BUN 34 H (7-17) mg/dL Creatinine 1.28 H (0.52-1.04) mg/dL Estimated GFR 43.3 ML/MIN Glucose 208 H (74-106) mg/dL Calcium 9.1 (8.4-10.2) mg/dL Radiology Exams: Radiology Procedures Category Date Time Status CHEST 1 VIEW (PORTABLE) Routine Exams 06/06/18 17:22 Taken ECHO W/2D AND DOPPLER [US] Routine Exams 06/05/18 10:05 Draft PULMONARY PERF VENTILATION [NUCMED] Routine Exams 06/07/18 09:54 Taken Assessment/Plan (1) Pneumonia Current Visit: Yes Status: Acute Qualifiers: Pneumonia type: due to unspecified organism Laterality: right Lung location: middle lobe of lung Qualified Code(s): J18.1 - Lobar pneumonia, unspecified organism Code(s): J18.9 - PNEUMONIA, UNSPECIFIED ORGANISM (2) COPD exacerbation Current Visit: Yes Status: Acute Code(s): J44.1 - CHRONIC OBSTRUCTIVE PULMONARY DISEASE W (ACUTE) EXACERBATION (3) Shortness of breath Current Visit: Yes Status: Acute Assessment & Plan: VQ pending Code(s): R06.02 - SHORTNESS OF BREATH (4) Renal insufficiency Current Visit: Yes Status: Chronic Assessment & Plan: eGFR 43.3 this morning, down from 50. continue to watch. (5) Breast cancer Current Visit: Yes Status: Acute Qualifiers: Breast location: unspecified site of breast Estrogen receptor status: negative Patient sex: female Laterality: right Qualified Code(s): C50.911 - Malignant neoplasm of unspecified site of right female breast; Z17.1 - Estrogen receptor negative status [ER-] (6) Failure of outpatient treatment Current Visit: Yes Status: Acute Code(s): Z78.9 - OTHER SPECIFIED HEALTH STATUS (7) Leg edema Current Visit: Yes Status: Acute Assessment & Plan: she thinks due to chronic steroids. Echo was noncontributory, due to difficult exam technically Code(s): R60.0 - LOCALIZED EDEMA
--- NOTE | 2018-06-07 08:33 | XRAY ---
Indication: Short of breath. Comparison: June 04, 2018. Portable apical lordotic chest demonstrates slightly diminished previous right mid peripheral infiltrate/atelectasis. Remaining heart and lungs normal. No new cardiopulmonary abnormalities.
--- NOTE | 2018-06-07 09:21 | XRAY ---
Indication: Short of breath 2 weeks. Elevated d-dimer. COPD. Pneumonia. Patient received 5.6 mCi technetium 99 MAA for the perfusion portion of the exam. Patient inhaled 35.6 mCi aerosolized technetium 99 DTPA for the ventilation portion of the exam. Multiple planar images obtained. Comparison: None Perfusion images demonstrates segmental defects in the right upper, right middle, and left upper lobes. Ventilation images demonstrates diffuse heterogeneous radiopharmaceutical activity predominantly more central favoring chronic obstructive disease. Impression: 1. Bilateral segmental perfusion defects as detailed. PIOPED criteria for pulmonary embolus is high probability. 2. Probable underlying chronic obstructive disease.
[2018-06-07] MEDS: Levofloxacin 500MG/100ML D5W 500 MG/100 ML BAG IV SCH (09:36)
[2018-06-07] MEDS: SYNTHROID 75 MCG PO SCH (09:37)
[2018-06-07] MEDS: NORVASC 5 MG PO SCH (09:37)
[2018-06-07] MEDS: Klor Con 10 MEQ PO SCH ×2 (09:37→20:27)
[2018-06-07] MEDS: ENOXAPARIN SODIUM SQ SCH (09:37)
[2018-06-07] MEDS: ZYLOPRIM 300 MG PO SCH (09:37)
[2018-06-07] MEDS: Pepcid 20 MG PO SCH (09:37)
[2018-06-07] MEDS: THEOPHYLLINE ER 24HR PO SCH (09:38)
[2018-06-07] MEDS: TYLENOL 325 MG PO PRN (20:21)
[2018-06-07] MEDS: ZOLOFT 50 MG TABLET PO SCH (20:27)
[2018-06-08] MEDS: solu-MEDROL 125 MG IV SCH ×4 (00:21→21:46)
[2018-06-08] MEDS: PROVENTIL 2.5 MG/3 ML NEB IH SCH ×6 (02:58→23:11)
[2018-06-08 06:06] LABS: Hematocrit 35.1 % (35-47); Mean Cell Volume 93.1 fl (78-100); Mean Corpuscular Hgb Concent. 31.3 g/dl (32-36); Mean Platelet Volume 11.7 fl (6-9.5); Platelet Count 221 K/mm3 (150-450); Red Blood Count 3.77 M/mm3 (4.1-5.4); White Blood Count 14.7 K/mm3 (4.0-10.5)
[2018-06-08 06:23] LABS: Mean Corpuscular Hemoglobin 29.1 pg (26-32)
[2018-06-08 06:24] LABS: ANION GAP 10.6 MEQ/L (5-15); Calcium 8.9 mg/dL (8.4-10.2); Creatinine 1 1.29 mg/dL (0.52-1.04); Potassium 4.1 mmol/L (3.5-5.1)
[2018-06-08] MEDS: Spiriva 18 Mcg/Cap Inhaler IH SCH (06:50)
--- NOTE | 2018-06-08 08:48 | PCM.NOTE ---
Date and Time: 06/08/18 0843 Subjective Assessment: Pt's VQ scan yesterday was found to be high probability for PE. Has been on therapeutic dose of lovenox (renal adjustment). Still having some tachypnea overnight. She is concerned about her family history of CHF. Tolerating po. - Review of Systems Constitutional: No Fever Respiratory: Cough, Short Of Breath Objective Exam General Appearance: no apparent distress, alert, obese Neurologic Exam: oriented x 3, cooperative Skin Exam: normal color, warm, dry, No rash Eye Exam: eyes nml inspection Ears, Nose, Throat Exam: moist mucous membranes Neck Exam: normal inspection Respiratory Exam: diminished breath sounds (R>L), prolonged expirations, wheezing (scattered), No crackles/rales, No rhonchi Cardiovascular Exam: regular rate/rhythm, normal heart sounds, No murmur Gastrointestinal/Abdomen Exam: soft, normal bowel sounds, No tenderness Extremity Exam: No pedal edema, No swelling Back Exam: normal inspection, No rash OBJECTIVE DATA Vital Signs: Vital Signs - 24 hr Temp Pulse Resp BP Pulse Ox 06/08/18 08:00 97.5 F 95 H 20 147/80 96 06/08/18 07:46 98 H 18 96 06/08/18 04:00 25 H 06/08/18 03:42 97.2 F 92 H 25 H 165/67 97 06/08/18 02:58 92 H 25 H 97 06/08/18 00:00 97.9 F 112 H 31 H 143/71 96 06/07/18 22:52 102 H 20 96 06/07/18 20:00 98.4 F 107 H 20 136/74 97 06/07/18 19:20 110 H 32 H 98 06/07/18 16:00 98.6 F 114 H 24 141/75 97 06/07/18 12:00 98.2 F 114 H 25 H 137/90 97 06/07/18 11:26 107 H 18 98 Oxygen-Last 24 hours O2 Percentage 4 Liters = 36% O2 Percentage 4 Liters = 36% O2 Percentage 4 Liters = 36% O2 Percentage 4 Liters = 36% O2 Percentage 4 Liters = 36% Oxygen Flowrate (L/min)-RT 4 Pain Assessment - Last Documented Pain Intensity 0 Pain Scale Used 0-10 Pain Scale Intake and Output: Intake & Output 06/05/18 06/06/18 06/07/18 06/08/18 11:59 11:59 11:59 11:59 Intake Total 449 1750 2100 1080 Output Total 200 1320 600 800 Balance 630 609 8710 280 Weight 75.7 kg 74.2 kg 76.8 kg Lab Results: Lab Results-Last 24 Hours 06/08/18 06/08/18 Range/Units 05:33 05:33 WBC 14.7 H (4.0-10.5) K/mm3 RBC 3.77 L (4.1-5.4) M/mm3 Hgb 11.0 L (12.0-16.0) gm/dl Hct 35.1 (35-47) % MCV 93.1 (78-100) fl MCH 29.1 (26-32) pg MCHC 31.3 L (32-36) g/dl RDW 16.0 H (11.5-14.0) % Plt Count 221 (150-450) K/mm3 MPV 11.7 H (6-9.5) fl Sodium 142 (137-145) mmol/L Potassium 4.1 (3.5-5.1) mmol/L Chloride 111 H (98-107) mmol/L Carbon Dioxide 25 (22-30) mmol/L Anion Gap 10.6 (5-15) MEQ/L BUN 41 H (7-17) mg/dL Creatinine 1.29 H (0.52-1.04) mg/dL Estimated GFR 42.9 ML/MIN Glucose 218 H (74-106) mg/dL Calcium 8.9 (8.4-10.2) mg/dL Radiology Exams: Radiology Procedures Category Date Time Status CHEST 1 VIEW (PORTABLE) Routine Exams 06/06/18 17:22 Completed PULMONARY PERF VENTILATION [NUCMED] Routine Exams 06/07/18 09:54 Completed Assessment/Plan (1) Pulmonary emboli Current Visit: Yes Status: Acute Qualifiers: Pulmonary embolism type: other Chronicity: acute Acute cor pulmonale presence: without acute cor pulmonale Qualified Code(s): I26.99 - Other pulmonary embolism without acute cor pulmonale Assessment & Plan: Changing her lovenox to xarelto today. Will need to watch renal function - her eGFR currently is 42.9. I will call her side seam envelope machine operator today, Dr. Gibbons from [place], to let him know. Code(s): I26.99 - OTHER PULMONARY EMBOLISM WITHOUT ACUTE COR PULMONALE (2) Pneumonia Current Visit: Yes Status: Acute Qualifiers: Pneumonia type: due to unspecified organism Laterality: right Lung location: middle lobe of lung Qualified Code(s): J18.1 - Lobar pneumonia, unspecified organism Assessment & Plan: On day #3 of Levaquin. Clinically appears to be feeling better. Code(s): J18.9 - PNEUMONIA, UNSPECIFIED ORGANISM (3) COPD exacerbation Current Visit: Yes Status: Acute Assessment & Plan: on IV solumedrol 80mg q6h, day #3. will decrease to 60mg q8h. Code(s): J44.1 - CHRONIC OBSTRUCTIVE PULMONARY DISEASE W (ACUTE) EXACERBATION (4) Shortness of breath Current Visit: Yes Status: Acute Assessment & Plan: Consulting cardiology; I had ordered an echo earlier in the week since she has had LE edema and of course this shortness of breath. However it was non- contributory due to being technically difficult. So, will see if cardiology has any suggestions regarding further testing. I did let her know that she would likely benefit from outpatient f/u with side seam envelope machine operator (will see Dr. Fox at [place]). Code(s): R06.02 - SHORTNESS OF BREATH (5) Renal insufficiency Current Visit: Yes Status: Chronic (6) Breast cancer Current Visit: Yes Status: Acute Qualifiers: Breast location: unspecified site of breast Estrogen receptor status: negative Patient sex: female Laterality: right Qualified Code(s): C50.911 - Malignant neoplasm of unspecified site of right female breast; Z17.1 - Estrogen receptor negative status [ER-] (7) Failure of outpatient treatment Current Visit: Yes Status: Acute Code(s): Z78.9 - OTHER SPECIFIED HEALTH STATUS (8) Leg edema Current Visit: Yes Status: Acute Code(s): R60.0 - LOCALIZED EDEMA
[2018-06-08] MEDS ORDERED: XARELTO 10 MG TABLET PO SCH (10:00)
[2018-06-08] MEDS: Pepcid 20 MG PO SCH (11:31)
[2018-06-08] MEDS: SYNTHROID 75 MCG PO SCH (11:31)
[2018-06-08] MEDS: NORVASC 5 MG PO SCH (11:31)
[2018-06-08] MEDS: ZYLOPRIM 300 MG PO SCH (11:31)
[2018-06-08] MEDS: THEOPHYLLINE ER 24HR PO SCH (11:32)
[2018-06-08] MEDS: Klor Con 10 MEQ PO SCH ×2 (11:32→21:47)
[2018-06-08] MEDS: Levaquin 250MG/50ML D5W 250 MG/50 ML BAG IV SCH (11:35)
[2018-06-08] MEDS: Levofloxacin 500MG/100ML D5W 500 MG/100 ML BAG IV SCH (11:59)
--- NOTE | 2018-06-08 15:13 | XRAY ---
Indication: PE. Two-dimensional sonogram and color Doppler imaging of the major venous vessels of the left and right leg was performed. Comparison: None No thrombus seen in the examined deep venous vessels of the left and right leg including greater saphenous vein. Veins demonstrate normal compressibility. Venous waveforms are normal with and without augmentation. Impression: Left and right legs negative for DVT.
[2018-06-08] MEDS: ELIQUIS 2.5 MG TABLET PO SCH (21:47)
[2018-06-08] MEDS: ZOLOFT 50 MG TABLET PO SCH (21:47)
[2018-06-09] MEDS: PROVENTIL 2.5 MG/3 ML NEB IH SCH ×6 (03:14→23:03)
[2018-06-09] MEDS: solu-MEDROL 125 MG IV SCH ×3 (06:33→22:26)
[2018-06-09] MEDS: Spiriva 18 Mcg/Cap Inhaler IH SCH (06:55)
[2018-06-09] MEDS: ZYLOPRIM 300 MG PO SCH (09:57)
[2018-06-09] MEDS: Klor Con 10 MEQ PO SCH ×2 (09:58→22:25)
[2018-06-09] MEDS: Pepcid 20 MG PO SCH (09:58)
[2018-06-09] MEDS: ELIQUIS 2.5 MG TABLET PO SCH ×2 (09:58→22:28)
[2018-06-09] MEDS: Levaquin 250MG/50ML D5W 250 MG/50 ML BAG IV SCH (09:58)
[2018-06-09] MEDS: SYNTHROID 75 MCG PO SCH (09:58)
[2018-06-09] MEDS: NORVASC 5 MG PO SCH (09:58)
[2018-06-09] MEDS: THEOPHYLLINE ER 24HR PO SCH (09:59)
[2018-06-09] MEDS ORDERED: Lasix 20 MG/2 ML IV ONE (11:07)
--- NOTE | 2018-06-09 11:56 | PCM.NOTE ---
Date and Time: 06/09/18 1155 Subjective Assessment: doing better - Review of Systems Constitutional: No Fever, No Chills Eyes: No Symptoms Ears, Nose, & Throat: No Symptoms Respiratory: No Cough, No Short Of Breath Cardiac: No Chest Pain, No Edema, No Syncope Abdominal/Gastrointestinal: No Abdominal Pain, No Nausea, No Vomiting, No Diarrhea Genitourinary Symptoms: No Dysuria Musculoskeletal: No Back Pain, No Neck Pain Skin: No Rash Neurological: No Dizziness, No Focal Weakness, No Sensory Changes Psychological: No Symptoms Endocrine: No Symptoms Hematologic/Lymphatic: No Symptoms Immunological/Allergic: No Symptoms Objective Exam General Appearance: no apparent distress, alert Neurologic Exam: alert, oriented x 3, cooperative, normal mood/affect, nml cerebellar function, sensation nml, No motor deficits Skin Exam: normal color, warm, dry Eye Exam: PERRL, EOMI, eyes nml inspection Ears, Nose, Throat Exam: normal ENT inspection, pharynx normal, moist mucous membranes Neck Exam: normal inspection, non-tender, supple, full range of motion Respiratory Exam: normal breath sounds, lungs clear, No respiratory distress Cardiovascular Exam: regular rate/rhythm, normal heart sounds Gastrointestinal/Abdomen Exam: soft, No tenderness, No mass Extremity Exam: normal inspection, normal range of motion Back Exam: normal inspection, normal range of motion, No CVA tenderness, No vertebral tenderness Pelvic Exam: deferred Rectal Exam: deferred OBJECTIVE DATA Vital Signs: Vital Signs - 24 hr Temp Pulse Resp BP Pulse Ox 06/09/18 11:49 20 06/09/18 10:41 109 H 20 97 06/09/18 07:59 18 06/09/18 07:46 98.4 F 95 H 18 166/77 98 06/09/18 07:00 95 H 18 98 06/09/18 04:00 98.6 F 98 H 18 141/70 95 06/09/18 03:14 100 H 18 93 L 06/09/18 00:00 98.3 F 100 H 18 157/75 94 L 06/08/18 23:14 99 H 18 32 L 06/08/18 20:00 98.6 F 113 H 19 122/59 94 L 06/08/18 18:57 106 H 16 95 06/08/18 16:00 98.8 F 111 H 21 146/69 96 06/08/18 15:03 85 20 96 03/29/19 12:00 105 H 21 97 Oxygen-Last 24 hours O2 Percentage 3 Liters = 32% O2 Percentage 4 Liters = 36% O2 Percentage 4 Liters = 36% O2 Percentage 4 Liters = 36% O2 Percentage 4 Liters = 36% O2 Percentage 4 Liters = 36% Pain Assessment - Last Documented Pain Intensity 0 Pain Scale Used 0-10 Pain Scale Intake and Output: Intake & Output 06/06/18 06/07/18 06/08/18 06/09/18 11:59 11:59 11:59 11:59 Intake Total 1750 2100 1440 840 Output Total 8395 990 8683 875 Balance 430 1500 240 -35 Weight 74.2 kg 76.8 kg 76.5 kg Radiology Exams: Radiology Procedures Category Date Time Status VENOUS BILATERAL EXTREMITY [US] Urgent Exams 06/08/18 15:00 Completed Assessment/Plan (1) COPD exacerbation Current Visit: Yes Status: Acute Assessment & Plan: doing better.continue present management Code(s): J44.1 - CHRONIC OBSTRUCTIVE PULMONARY DISEASE W (ACUTE) EXACERBATION (2) Failure of outpatient treatment Current Visit: Yes Status: Acute Code(s): Z78.9 - OTHER SPECIFIED HEALTH STATUS (3) Pneumonia Current Visit: Yes Status: Acute Qualifiers: Pneumonia type: due to unspecified organism Laterality: right Lung location: middle lobe of lung Qualified Code(s): J18.1 - Lobar pneumonia, unspecified organism Assessment & Plan: Medication Report Acetaminophen (Tylenol 325 Mg) 650 mg PO Q6H PRN PRN PRN Reason: PAIN AND/OR FEVER Stop: 07/07/18 20:00 Last Admin: 06/09/18 13:08 Dose: 650 mg MAR PAIN Document 06/09/18 13:08 MJ (Rec: 06/09/18 13:08 MJ [id number]) Reassesment Location Head Pain Scale Used 0-10 Pain Scale Pain Intensity (0-10) 8 Albuterol Sulfate (Proventil 2.5 Mg/3 Ml Neb) 2.5 mg IH Q4HRT [facility] Stop: 07/04/18 22:59 Last Admin: 06/10/18 07:07 Dose: 2.5 mg Nebulizer Treatment Document 06/10/18 07:07 TW (Rec: 06/10/18 07:07 TW [email or web address]) Therapy Aerosol Therapy Subsequent Aerosol Therapy Treatment Method Nebulizer Mask Treatment Tolerance Good Allopurinol (Zyloprim 300 Mg) 300 mg PO DAILY [facility] Stop: 07/05/18 09:59 Last Admin: 06/09/18 09:57 Dose: 300 mg Amlodipine Besylate (Norvasc 5 Mg) 5 mg PO QAM [facility] Stop: 07/05/18 09:59 Last Admin: 06/09/18 09:58 Dose: 5 mg Apixaban (Eliquis 2.5 Mg Tablet) 10 mg PO BID [facility] Stop: 07/08/18 21:59 Last Admin: 06/09/18 22:28 Dose: 10 mg Famotidine (Pepcid 20 Mg) 20 mg PO QAM [facility] Stop: 07/05/18 09:59 Last Admin: 06/09/18 09:58 Dose: 20 mg Levofloxacin/Dextrose (Levaquin 250mg/50ml D5w) 250 mg in 50 mls @ 50 mls/hr IV Q24H10 [facility] Stop: 07/08/18 11:29 Last Admin: 06/09/18 09:58 Dose: 50 mls/hr Levothyroxine Sodium (Synthroid 75 Mcg) 75 mcg PO QAM [facility] Stop: 07/05/18 09:59 Last Admin: 06/09/18 09:58 Dose: 75 mcg Methylprednisolone Sodium Succinate (Solu-Medrol 125 Mg) 60 mg IV Q8HT [facility] Stop: 07/08/18 13:59 Last Admin: 06/10/18 05:39 Dose: 60 mg Potassium Chloride (Klor Con 10 Meq) 10 meq PO BID [facility] Stop: 07/04/18 21:59 Last Admin: 06/09/18 22:25 Dose: 10 meq Promethazine HCl (Phenergan 25 Mg Inj) 12.5 mg IV Q6H PRN PRN PRN Reason: NAUSEA/VOMITING Stop: 07/05/18 13:23 Last Admin: 06/05/18 13:34 Dose: 12.5 mg Sertraline HCl (Zoloft 50 Mg Tablet) 50 mg PO HS [facility] Stop: 07/06/18 21:59 Last Admin: 06/09/18 22:26 Dose: 50 mg Theophylline (Theophylline Er 24hr) 300 mg PO DAILY [facility] Stop: 07/05/18 09:59 Last Admin: 06/09/18 09:59 Dose: 300 mg Tiotropium [place] (Spiriva 18 Mcg/Cap Inhaler) 1 ea IH DAILY [facility] Stop: 07/05/18 06:59 Last Admin: 06/10/18 07:13 Dose: 1 ea MDI Document 06/10/18 07:13 TW (Rec: 06/10/18 07:14 TW [email or web address]) MDI MDI Initial MDI [place] After MDI Yes Discontinued Medications Albuterol Sulfate (Proventil 2.5 Mg/3 Ml Neb) 10 mg IH STAT ONE Stop: 06/04/18 16:03 Last Admin: 06/06/18 07:41 Dose: Not Given Non-Admin Reason: duplicate order Albuterol Sulfate (Proventil Solution 2.5 Mg/0.5 Ml) 10 mg IH STAT ONE Stop: 06/04/18 16:30 Last Admin: 06/04/18 16:30 Dose: 10 mg Enoxaparin Sodium (Enoxaparin Sodium) 30 mg SQ DAILY [facility] Stop: 07/05/18 09:59 Last Admin: 06/06/18 09:12 Dose: 30 mg MAR Injection Site Document 06/06/18 09:12 MS (Rec: 06/06/18 09:12 MS [id number]) Injection Site MAR Injection Site Left Lower Quad Enoxaparin Sodium (Enoxaparin Sodium) 80 mg SQ DAILY [facility] Stop: 07/06/18 10:14 Last Admin: 06/07/18 09:37 Dose: 80 mg MAR Injection Site Document 06/07/18 09:37 BE (Rec: 06/07/18 09:37 BE [id number]) Injection Site MAR Injection Site Left Lower Quad Enoxaparin Sodium (Enoxaparin Sodium) 50 mg SQ ONCE ONE Stop: 06/06/18 10:44 Last Admin: 06/06/18 11:10 Dose: 50 mg MAR Injection Site Document 06/06/18 11:10 BE (Rec: 06/06/18 11:10 BE [id number]) Injection Site MAR Injection Site Left Lower Quad Furosemide (Lasix 20 Mg/2 Ml) 20 mg IV 1XONLY ONE Stop: 06/09/18 11:08 Last Admin: 06/09/18 11:21 Dose: 20 mg Ceftriaxone Sodium/Dextrose (Rocephin 1 Gm-D5w 50 Ml Bag) 1 g in 50 mls @ 100 mls/hr IV STAT [facility] Stop: 06/04/18 16:31 Last Infusion: 06/04/18 18:44 Dose: 0 ml/hr, 0 mls/hr Infusion/Titration Document 06/04/18 18:44 TR (Rec: 06/04/18 18:45 TR [id number]) Dosing & Rate Titration Dose 0 IV Rate 0 Increase/Decrease Infused Cumulative Dose 0 IV Intake Infusion Intake 50 Cumulative Intake (Bag) 50 Cumulative Intake (Rx) 50 Container Volume 0 Volume Adjustment/Waste 0 Sodium Chloride (Sodium Chloride 0.9% 1000 Ml) 1,000 mls @ 20 mls/hr IV .Q24H [facility] Stop: 07/04/18 16:14 Last Admin: 06/06/18 17:22 Dose: 20 mls/hr Infusion/Titration Document 06/06/18 17:22 CHARLES (Rec: 06/06/18 17:23 [id number]) Dosing & Rate IV Rate 20 Increase/Decrease Started/Running Cumulative Dose Not Applicable IV Intake Cumulative Intake (Rx) 1,000 Container Volume 1,000 Volume Adjustment/Waste 0 Azithromycin (Zithromax 500 Mg/ 250 Ml Nacl Premix) 500 mg in 250 mls @ 250 mls /hr IV STAT [facility] Stop: 06/04/18 17:01 Last Admin: 06/04/18 18:13 Dose: 250 ml/hr, 250 mls/hr Med Admininistration (IV,IVP) Document 06/04/18 18:13 TR (Rec: 06/04/18 18:13 TR [id number]) Type of Administration Initial IV Push No Infusion/Titration Document 06/04/18 18:13 TR (Rec: 06/04/18 18:13 TR [id number]) Dosing & Rate Titration Dose 250 IV Rate 250 Increase/Decrease Started IV Intake Container Volume 250 Volume Adjustment/Waste 0 Azithromycin (Zithromax 500 Mg/ 250 Ml Nacl Premix) 500 mg in 250 mls @ 250 mls /hr IV Q24H10 [facility] Stop: 07/05/18 09:59 Last Admin: 06/05/18 12:12 Dose: 250 mls/hr Comments: had to wait on other antibiotic Ceftriaxone Sodium/Dextrose (Rocephin 1 Gm-D5w 50 Ml Bag) 1 g in 50 mls @ 100 mls/hr IV Q24H10 [facility] Stop: 07/05/18 09:59 Last Admin: 06/05/18 10:56 Dose: 100 mls/hr Levofloxacin/Dextrose (Levofloxacin 500mg/100ml D5w) 500 mg in 100 mls @ 100 mls/hr IV Q24H10 [facility] Stop: 07/06/18 09:59 Last Admin: 06/08/18 11:59 Dose: Not Given Non-Admin Reason: CHANGED ORDER Levalbuterol HCl (Xopenex 1.25 Mg/0.5 Ml Ud Nebule) 1.25 mg IH STAT ONE Stop: 06/04/18 18:21 Last Admin: 06/04/18 18:30 Dose: 1.25 mg Nebulizer Treatment Document 06/04/18 18:30 TW (Rec: 06/04/18 18:30 TW [id number]) Therapy Aerosol Therapy Subsequent Aerosol Therapy Treatment Method Nebulizer Mask Treatment Tolerance Good Methylprednisolone Sodium Succinate (Solu-Medrol 125 Mg) 125 mg IV STAT ONE Stop: 06/04/18 16:03 Last Admin: 06/04/18 17:44 Dose: 125 mg Med Admininistration (IV,IVP) Document 06/04/18 17:44 KB (Rec: 06/04/18 17:45 KB [id number]) Type of Administration Initial IV Push Yes Methylprednisolone Sodium Succinate (Solu-Medrol 125 Mg) 80 mg IV Q6HT [facility] Stop: 07/05/18 00:00 Last Admin: 06/08/18 06:52 Dose: 80 mg Non-Formulary Medication (Pharmacy Dosing Request) 1 each MC STAT ONE Stop: 06/06/18 10:09 Last Admin: 06/06/18 17:20 Dose: 1 each Rivaroxaban (Xarelto 10 Mg Tablet) 15 mg PO BID [facility] Stop: 07/08/18 09:59 Last Admin: 06/08/18 11:31 Dose: 15 mg Sodium Chloride (Sodium Chloride 3 Ml Ud Nebules) 7 ml IH STAT ONE Stop: 06/04/18 16:39 Last Admin: 03/25/19 16:39 Dose: 7 ml Code(s): J18.9 - PNEUMONIA, UNSPECIFIED ORGANISM
[2018-06-09] MEDS: TYLENOL 325 MG PO PRN (13:08)
[2018-06-09] MEDS: ZOLOFT 50 MG TABLET PO SCH (22:26)
[2018-06-10] MEDS: PROVENTIL 2.5 MG/3 ML NEB IH SCH ×6 (03:01→23:53)
[2018-06-10] MEDS: solu-MEDROL 125 MG IV SCH ×3 (05:39→22:29)
[2018-06-10] MEDS: Spiriva 18 Mcg/Cap Inhaler IH SCH (07:13)
--- NOTE | 2018-06-10 07:50 | PCM.NOTE ---
Date and Time: 06/10/18747 Subjective Assessment: doing better, no fever - Review of Systems Constitutional: No Fever, No Chills Eyes: No Symptoms Ears, Nose, & Throat: No Symptoms Respiratory: Cough, No Short Of Breath Cardiac: No Chest Pain, No Edema, No Syncope Abdominal/Gastrointestinal: No Abdominal Pain, No Nausea, No Vomiting, No Diarrhea Genitourinary Symptoms: No Dysuria Musculoskeletal: No Back Pain, No Neck Pain Skin: No Rash Neurological: No Dizziness, No Focal Weakness, No Sensory Changes Psychological: No Symptoms Endocrine: No Symptoms Hematologic/Lymphatic: No Symptoms Immunological/Allergic: No Symptoms Objective Exam General Appearance: no apparent distress, alert Neurologic Exam: alert, oriented x 3, cooperative, normal mood/affect, nml cerebellar function, sensation nml, No motor deficits Skin Exam: normal color, warm, dry Eye Exam: PERRL, EOMI, eyes nml inspection Ears, Nose, Throat Exam: normal ENT inspection, pharynx normal, moist mucous membranes Neck Exam: normal inspection, non-tender, supple, full range of motion Respiratory Exam: crackles/rales, rhonchi, wheezing, No respiratory distress Cardiovascular Exam: regular rate/rhythm, normal heart sounds Gastrointestinal/Abdomen Exam: soft, No tenderness, No mass Extremity Exam: normal inspection, normal range of motion Back Exam: normal inspection, normal range of motion, No CVA tenderness, No vertebral tenderness Pelvic Exam: deferred Rectal Exam: deferred OBJECTIVE DATA Vital Signs: Vital Signs - 24 hr Temp Pulse Resp BP Pulse Ox 06/10/18 07:46 98.0 F 98 H 18 154/75 94 L 06/10/18 07:14 92 H 18 96 06/10/18 04:00 97.6 F 97 H 18 140/74 96 06/10/18 03:07 97 H 18 94 L 06/10/18 00:00 98.2 F 104 H 18 144/67 93 L 06/09/18 23:05 102 H 18 95 06/09/18 20:00 98.6 F 96 H 20 146/72 95 06/09/18 19:21 109 H 18 94 L 06/09/18 16:00 98.3 F 117 H 17 125/95 94 L 06/09/18 12:00 98.0 F 112 H 18 169/70 95 06/09/18 11:49 20 06/09/18 10:41 109 H 20 97 06/09/18 07:59 18 Oxygen-Last 24 hours O2 Percentage 4 Liters = 36% O2 Percentage 3 Liters = 32% O2 Percentage 3 Liters = 32% O2 Percentage 3 Liters = 32% O2 Percentage 3 Liters = 32% Oxygen Flowrate (L/min)-RT 3 Pain Assessment - Last Documented Pain Intensity 0 Pain Scale Used 0-10 Pain Scale Intake and Output: Intake & Output 06/07/18 06/08/18 06/09/18 06/10/18 11:59 11:59 11:59 11:59 Intake Total 2100 1440 840 771 Output Total 600 1200 875 800 Balance 1500 240 -35 -29 Weight 74.2 kg 76.8 kg 76.5 kg 77.1 kg Radiology Exams: Radiology Procedures Category Date Time Status VENOUS BILATERAL EXTREMITY [US] Urgent Exams 06/08/18 15:00 Completed Assessment/Plan (1) Pneumonia Current Visit: Yes Status: Acute Qualifiers: Pneumonia type: due to unspecified organism Laterality: right Lung location: middle lobe of lung Qualified Code(s): J18.1 - Lobar pneumonia, unspecified organism Assessment & Plan: improving Code(s): J18.9 - PNEUMONIA, UNSPECIFIED ORGANISM (2) COPD exacerbation Current Visit: Yes Status: Acute Assessment & Plan: improving. Medication Report Acetaminophen (Tylenol 325 Mg) 650 mg PO Q6H PRN PRN PRN Reason: PAIN AND/OR FEVER Stop: 07/07/18 20:00 Last Admin: 06/09/18 13:08 Dose: 650 mg MAR PAIN Document 06/09/18 13:08 MJ (Rec: 06/09/18 13:08 MJ [id number]) Reassesment Location Head Pain Scale Used 0-10 Pain Scale Pain Intensity (0-10) 8 Albuterol Sulfate (Proventil 2.5 Mg/3 Ml Neb) 2.5 mg IH Q4HRT [facility] Stop: 07/04/18 22:59 Last Admin: 06/10/18 07:07 Dose: 2.5 mg Nebulizer Treatment Document 06/10/18 07:07 TW (Rec: 06/10/18 07:07 TW [email or web address]) Therapy Aerosol Therapy Subsequent Aerosol Therapy Treatment Method Nebulizer Mask Treatment Tolerance Good Allopurinol (Zyloprim 300 Mg) 300 mg PO DAILY [facility] Stop: 07/05/18 09:59 Last Admin: 06/09/18 09:57 Dose: 300 mg Amlodipine Besylate (Norvasc 5 Mg) 5 mg PO QAM [facility] Stop: 07/05/18 09:59 Last Admin: 06/09/18 09:58 Dose: 5 mg Apixaban (Eliquis 2.5 Mg Tablet) 10 mg PO BID [facility] Stop: 07/08/18 21:59 Last Admin: 06/09/18 22:28 Dose: 10 mg Famotidine (Pepcid 20 Mg) 20 mg PO QAM [facility] Stop: 07/05/18 09:59 Last Admin: 06/09/18 09:58 Dose: 20 mg Levofloxacin/Dextrose (Levaquin 250mg/50ml D5w) 250 mg in 50 mls @ 50 mls/hr IV Q24H10 [facility] Stop: 07/08/18 11:29 Last Admin: 06/09/18 09:58 Dose: 50 mls/hr Levothyroxine Sodium (Synthroid 75 Mcg) 75 mcg PO QAM [facility] Stop: 07/05/18 09:59 Last Admin: 06/09/18 09:58 Dose: 75 mcg Methylprednisolone Sodium Succinate (Solu-Medrol 125 Mg) 60 mg IV Q8HT [facility] Stop: 07/08/18 13:59 Last Admin: 06/10/18 05:39 Dose: 60 mg Potassium Chloride (Klor Con 10 Meq) 10 meq PO BID [facility] Stop: 07/04/18 21:59 Last Admin: 06/09/18 22:25 Dose: 10 meq Promethazine HCl (Phenergan 25 Mg Inj) 12.5 mg IV Q6H PRN PRN PRN Reason: NAUSEA/VOMITING Stop: 07/05/18 13:23 Last Admin: 06/05/18 13:34 Dose: 12.5 mg Sertraline HCl (Zoloft 50 Mg Tablet) 50 mg PO HS [facility] Stop: 07/06/18 21:59 Last Admin: 06/09/18 22:26 Dose: 50 mg Theophylline (Theophylline Er 24hr) 300 mg PO DAILY [facility] Stop: 07/05/18 09:59 Last Admin: 06/09/18 09:59 Dose: 300 mg Tiotropium [place] (Spiriva 18 Mcg/Cap Inhaler) 1 ea IH DAILY [facility] Stop: 07/05/18 06:59 Last Admin: 06/10/18 07:13 Dose: 1 ea MDI Document 06/10/18 07:13 TW (Rec: 06/10/18 07:14 TW [email or web address]) MDI MDI Initial MDI [place] After MDI Yes Discontinued Medications Albuterol Sulfate (Proventil 2.5 Mg/3 Ml Neb) 10 mg IH STAT ONE Stop: 06/04/18 16:03 Last Admin: 06/06/18 07:41 Dose: Not Given Non-Admin Reason: duplicate order Albuterol Sulfate (Proventil Solution 2.5 Mg/0.5 Ml) 10 mg IH STAT ONE Stop: 06/04/18 16:30 Last Admin: 06/04/18 16:30 Dose: 10 mg Enoxaparin Sodium (Enoxaparin Sodium) 30 mg SQ DAILY [facility] Stop: 07/05/18 09:59 Last Admin: 06/06/18 09:12 Dose: 30 mg MAR Injection Site Document 06/06/18 09:12 MS (Rec: 06/06/18 09:12 MS [id number]) Injection Site MAR Injection Site Left Lower Quad Enoxaparin Sodium (Enoxaparin Sodium) 80 mg SQ DAILY [facility] Stop: 07/06/18 10:14 Last Admin: 06/07/18 09:37 Dose: 80 mg MAR Injection Site Document 06/07/18 09:37 BE (Rec: 06/07/18 09:37 BE [id number]) Injection Site MAR Injection Site Left Lower Quad Enoxaparin Sodium (Enoxaparin Sodium) 50 mg SQ ONCE ONE Stop: 06/06/18 10:44 Last Admin: 06/06/18 11:10 Dose: 50 mg MAR Injection Site Document 06/06/18 11:10 BE (Rec: 06/06/18 11:10 BE [id number]) Injection Site MAR Injection Site Left Lower Quad Furosemide (Lasix 20 Mg/2 Ml) 20 mg IV 1XONLY ONE Stop: 06/09/18 11:08 Last Admin: 06/09/18 11:21 Dose: 20 mg Ceftriaxone Sodium/Dextrose (Rocephin 1 Gm-D5w 50 Ml Bag) 1 g in 50 mls @ 100 mls/hr IV STAT [facility] Stop: 06/04/18 16:31 Last Infusion: 06/04/18 18:44 Dose: 0 ml/hr, 0 mls/hr Infusion/Titration Document 06/04/18 18:44 TR (Rec: 06/04/18 18:45 TR [id number]) Dosing & Rate Titration Dose 0 IV Rate 0 Increase/Decrease Infused Cumulative Dose 0 IV Intake Infusion Intake 50 Cumulative Intake (Bag) 50 Cumulative Intake (Rx) 50 Container Volume 0 Volume Adjustment/Waste 0 Sodium Chloride (Sodium Chloride 0.9% 1000 Ml) 1,000 mls @ 20 mls/hr IV .Q24H [facility] Stop: 07/04/18 16:14 Last Admin: 06/06/18 17:22 Dose: 20 mls/hr Infusion/Titration Document 06/06/18 17:22 (Rec: 06/06/18 17:23 [id number]) Dosing & Rate IV Rate 20 Increase/Decrease Started/Running Cumulative Dose Not Applicable IV Intake Cumulative Intake (Rx) 1,000 Container Volume 1,000 Volume Adjustment/Waste 0 Azithromycin (Zithromax 500 Mg/ 250 Ml Nacl Premix) 500 mg in 250 mls @ 250 mls /hr IV STAT [facility] Stop: 06/04/18 17:01 Last Admin: 06/04/18 18:13 Dose: 250 ml/hr, 250 mls/hr Med Admininistration (IV,IVP) Document 06/04/18 18:13 TR (Rec: 06/04/18 18:13 TR [id number]) Type of Administration Initial IV Push No Infusion/Titration Document 06/04/18 18:13 TR (Rec: 06/04/18 18:13 TR [id number]) Dosing & Rate Titration Dose 250 IV Rate 250 Increase/Decrease Started IV Intake Container Volume 250 Volume Adjustment/Waste 0 Azithromycin (Zithromax 500 Mg/ 250 Ml Nacl Premix) 500 mg in 250 mls @ 250 mls /hr IV Q24H10 [facility] Stop: 07/05/18 09:59 Last Admin: 06/05/18 12:12 Dose: 250 mls/hr Comments: had to wait on other antibiotic Ceftriaxone Sodium/Dextrose (Rocephin 1 Gm-D5w 50 Ml Bag) 1 g in 50 mls @ 100 mls/hr IV Q24H10 [facility] Stop: 07/05/18 09:59 Last Admin: 06/05/18 10:56 Dose: 100 mls/hr Levofloxacin/Dextrose (Levofloxacin 500mg/100ml D5w) 500 mg in 100 mls @ 100 mls/hr IV Q24H10 [facility] Stop: 07/06/18 09:59 Last Admin: 06/08/18 11:59 Dose: Not Given Non-Admin Reason: CHANGED ORDER Levalbuterol HCl (Xopenex 1.25 Mg/0.5 Ml Ud Nebule) 1.25 mg IH STAT ONE Stop: 06/04/18 18:21 Last Admin: 06/04/18 18:30 Dose: 1.25 mg Nebulizer Treatment Document 06/04/18 18:30 TW (Rec: 06/04/18 18:30 TW [id number]) Therapy Aerosol Therapy Subsequent Aerosol Therapy Treatment Method Nebulizer Mask Treatment Tolerance Good Methylprednisolone Sodium Succinate (Solu-Medrol 125 Mg) 125 mg IV STAT ONE Stop: 06/04/18 16:03 Last Admin: 06/04/18 17:44 Dose: 125 mg Med Admininistration (IV,IVP) Document 06/04/18 17:44 KB (Rec: 06/04/18 17:45 KB [id number]) Type of Administration Initial IV Push Yes Methylprednisolone Sodium Succinate (Solu-Medrol 125 Mg) 80 mg IV Q6HT [facility] Stop: 07/05/18 00:00 Last Admin: 06/08/18 06:52 Dose: 80 mg Non-Formulary Medication (Pharmacy Dosing Request) 1 each MC STAT ONE Stop: 06/06/18 10:09 Last Admin: 06/06/18 17:20 Dose: 1 each Rivaroxaban (Xarelto 10 Mg Tablet) 15 mg PO BID [facility] Stop: 07/08/18 09:59 Last Admin: 06/08/18 11:31 Dose: 15 mg Sodium Chloride (Sodium Chloride 3 Ml Ud Nebules) 7 ml IH STAT ONE Stop: 06/04/18 16:39 Last Admin: 06/04/18 16:39 Dose: 7 ml Code(s): J44.1 - CHRONIC OBSTRUCTIVE PULMONARY DISEASE W (ACUTE) EXACERBATION (3) Failure of outpatient treatment Current Visit: Yes Status: Resolved Code(s): Z78.9 - OTHER SPECIFIED HEALTH STATUS
[2018-06-10] MEDS: SYNTHROID 75 MCG PO SCH (08:37)
[2018-06-10] MEDS: ZYLOPRIM 300 MG PO SCH (08:38)
[2018-06-10] MEDS: LASIX 20 MG PO SCH (08:38)
[2018-06-10] MEDS: ELIQUIS 2.5 MG TABLET PO SCH ×2 (08:38→22:28)
[2018-06-10] MEDS: Pepcid 20 MG PO SCH (08:38)
[2018-06-10] MEDS: Klor Con 10 MEQ PO SCH ×2 (08:38→22:28)
[2018-06-10] MEDS: NORVASC 5 MG PO SCH (08:38)
[2018-06-10] MEDS: Levaquin 250MG/50ML D5W 250 MG/50 ML BAG IV SCH (08:38)
[2018-06-10] MEDS: THEOPHYLLINE ER 24HR PO SCH (08:40)
[2018-06-10] MEDS: ZOLOFT 50 MG TABLET PO SCH (22:28)
[2018-06-11] MEDS: PROVENTIL 2.5 MG/3 ML NEB IH SCH ×6 (03:29→23:05)
[2018-06-11] MEDS: solu-MEDROL 125 MG IV SCH ×3 (06:42→22:53)
[2018-06-11] MEDS: Spiriva 18 Mcg/Cap Inhaler IH SCH (06:48)
--- NOTE | 2018-06-11 08:33 | PCM.NOTE ---
Date and Time: 06/11/18830 Subjective Assessment: patient is doing better, breathing is improved. no new problems or concerns. Objective Exam General Appearance: no apparent distress, alert Skin Exam: normal color, warm, dry Respiratory Exam: diminished breath sounds, prolonged expirations Cardiovascular Exam: regular rate/rhythm, normal heart sounds Gastrointestinal/Abdomen Exam: soft, No tenderness, No mass Extremity Exam: normal inspection, normal range of motion OBJECTIVE DATA Vital Signs: Vital Signs - 24 hr Temp Pulse Resp BP Pulse Ox 06/11/18 07:31 98.1 F 94 H 19 160/77 93 L 06/11/18 06:50 94 H 18 96 06/11/18 04:00 98.1 F 90 18 148/77 95 06/11/18 03:29 90 18 95 06/11/18 00:00 97.5 F 102 H 18 138/70 93 L 06/10/18 23:54 105 H 18 93 L 06/10/18 20:00 98.3 F 111 H 32 H 125/59 93 L 06/10/18 19:17 107 H 18 94 L 06/10/18 16:00 98.4 F 107 H 18 139/76 94 L 06/10/18 15:43 100 H 18 96 06/10/18 12:00 98.1 F 117 H 18 141/64 96 06/10/18 11:16 108 H 18 98 Oxygen-Last 24 hours O2 Percentage 3 Liters = 32% O2 Percentage 3 Liters = 32% O2 Percentage 3 Liters = 32% O2 Percentage 3 Liters = 32% O2 Percentage 4 Liters = 36% Oxygen Flowrate (L/min)-RT 3 Pain Assessment - Last Documented Pain Intensity 0 Pain Scale Used FLACC Intake and Output: Intake & Output 06/08/18 06/09/18 06/10/18 06/11/18 11:59 11:59 11:59 11:59 Intake Total 1440 840 771 980 Output Total 1200 133 577 0525 Balance 240 -35 -29 -170 Weight 76.8 kg 76.5 kg 77.1 kg Assessment/Plan (1) Pulmonary emboli Current Visit: Yes Status: Acute Qualifiers: Pulmonary embolism type: other Chronicity: acute Acute cor pulmonale presence: without acute cor pulmonale Qualified Code(s): I26.99 - Other pulmonary embolism without acute cor pulmonale Assessment & Plan: contine eliquis as recommended by hematology Code(s): I26.99 - OTHER PULMONARY EMBOLISM WITHOUT ACUTE COR PULMONALE (2) COPD exacerbation Current Visit: Yes Status: Acute Assessment & Plan: continue levaquin and solu medrol Code(s): J44.1 - CHRONIC OBSTRUCTIVE PULMONARY DISEASE W (ACUTE) EXACERBATION (3) Breast cancer Current Visit: Yes Status: Acute Qualifiers: Breast location: unspecified site of breast Estrogen receptor status: negative Patient sex: female Laterality: right Qualified Code(s): C50.911 - Malignant neoplasm of unspecified site of right female breast; Z17.1 - Estrogen receptor negative status [ER-]
[2018-06-11] MEDS: ELIQUIS 2.5 MG TABLET PO SCH ×2 (09:50→22:52)
[2018-06-11] MEDS: Pepcid 20 MG PO SCH (09:50)
[2018-06-11] MEDS: SYNTHROID 75 MCG PO SCH (09:50)
[2018-06-11] MEDS: NORVASC 5 MG PO SCH (09:50)
[2018-06-11] MEDS: ZYLOPRIM 300 MG PO SCH (09:50)
[2018-06-11] MEDS: Klor Con 10 MEQ PO SCH ×2 (09:51→22:53)
[2018-06-11] MEDS: THEOPHYLLINE ER 24HR PO SCH (09:51)
[2018-06-11] MEDS: LASIX 20 MG PO SCH (09:51)
[2018-06-11] MEDS: Levaquin 250MG/50ML D5W 250 MG/50 ML BAG IV SCH (09:52)
[2018-06-11] MEDS: ZOLOFT 50 MG TABLET PO SCH (22:53)
[2018-06-12] MEDS: PROVENTIL 2.5 MG/3 ML NEB IH SCH ×3 (02:55→10:46)
[2018-06-12] MEDS: solu-MEDROL 125 MG IV SCH (05:40)
[2018-06-12 06:14] LABS: Hematocrit 35.3 % (35-47); Hemoglobin 11.3 gm/dl (12.0-16.0); Mean Cell Volume 91.2 fl (78-100); Mean Platelet Volume 11.9 fl (6-9.5); Platelet Count 240 K/mm3 (150-450); Red Blood Count 3.87 M/mm3 (4.1-5.4); Red Cell Distribution Width 15.6 % (11.5-14.0); White Blood Count 13.6 K/mm3 (4.0-10.5)
[2018-06-12 06:18] LABS: Mean Corpuscular Hemoglobin 29.1 pg (26-32)
[2018-06-12 06:24] LABS: ALBUMIN 3.1 g/dL (3.5-5.0); ANION GAP 11.5 MEQ/L (5-15); BILIRUBIN,TOTAL 0.4 mg/dL (0.2-1.3); Calcium 8.5 mg/dL (8.4-10.2); Creatinine 1 1.3 mg/dL (0.52-1.04); Potassium 4.3 mmol/L (3.5-5.1); Total Protein 5.5 g/dL (6.3-8.2)
[2018-06-12] MEDS: Spiriva 18 Mcg/Cap Inhaler IH SCH (07:16)
[2018-06-12 07:25] VITALS: BP 141/65
[2018-06-12 08:29] LABS: BAND 1 % (0.0-2.0); Lymphocytes 5 % (24-44); Monocyte 3 % (0.0-12.0); Neutrophils 91 % (36.0-66.0); Total Cells Counted 100
[2018-06-12 08:31] LABS: ANISOCYTOSIS 1+; Platelet Estimate NORMAL (NORMAL); Toxic Granulation 1+
--- NOTE | 2018-06-12 09:03 | PCM.DS ---
Discharge Summary Date of Admission: 06/06/18 08:35 Admitting Physician: BELLA CORMIER Consults: Consults on Case 06/08/18 08:41 Tele-Health Consult ROUTINE Primary Care Provider: BELLA CORMIER Allergies Allergies No Known Drug Allergies Allergy (Unverified 06/04/18 15:42) Hospital Summary - Hospital Course Hospital Course: patient was admitted with shortness of breath and difficulty breathing, found to have high probability of PE on VQ scan due to decreased renal function, started on eliquis after discussion with cardiology and hematology, hx of breast cancer. treated for copd exacerbation, doing much better and stable on 3L oxygen which she is on chronically at home. - Vitals & Intake/Output Vital Signs: Vital Signs Temperature 97.6 F 06/12/18 07:23 Pulse Rate 86 06/12/18 07:23 Respiratory Rate 18 06/12/18 07:54 Blood Pressure 141/65 06/12/18 07:23 O2 Sat by Pulse Oximetry 97 06/12/18 07:23 Oxygen-Last Documented O2 Percentage 3 Liters = 32% Intake & Output: Intake & Output 06/09/18 06/10/18 06/11/18 06/12/18 11:59 11:59 11:59 11:59 Intake Total 840 771 980 410 Output Total 977 873 4068 2200 Balance -35 29 170 1790 Weight 76.5 kg 77.1 kg 76.2 kg 75.3 kg - Lab Result Diagrams: 06/12/18 05:15 06/12/18 05:15 Lab Results-Last 24 Hrs: Lab Results-Last 24 Hours 06/12/18 06/12/18 Range/Units 05:15 05:15 WBC 13.6 H (4.0-10.5) K/mm3 RBC 3.87 L (4.1-5.4) M/mm3 Hgb 11.3 L (12.0-16.0) gm/dl Hct 35.3 (35-47) % MCV 91.2 (78-100) fl MCH 29.1 (26-32) pg MCHC 32.0 (32-36) g/dl RDW 15.6 H (11.5-14.0) % Plt Count 240 (150-450) K/mm3 MPV 11.9 H (6-9.5) fl Segmented Neutrophils 91 H (36.0-66.0) % Band Neutrophils 1 (0.0-2.0) % Lymphocytes (Manual) 5 L (24-44) % Monocytes (Manual) 3 (0.0-12.0) % Toxic Granulation 1+ Platelet Estimate NORMAL (NORMAL) RBC Morphology ABNORMAL Anisocytosis 1+ Sodium 134 L (137-145) mmol/L Potassium 4.3 (3.5-5.1) mmol/L Chloride 100 (98-107) mmol/L Carbon Dioxide 27 (22-30) mmol/L Anion Gap 11.5 (5-15) MEQ/L BUN 45 H (7-17) mg/dL Creatinine 1.30 H (0.52-1.04) mg/dL Estimated GFR 42.6 ML/MIN Glucose 323 H (74-106) mg/dL Calcium 8.5 (8.4-10.2) mg/dL Total Bilirubin 0.40 (0.2-1.3) mg/dL AST 16 (14-36) U/L ALT 24 (0-35) U/L Alkaline Phosphatase 49 (38-126) U/L Serum Total Protein 5.5 L (6.3-8.2) g/dL Albumin 3.1 L (3.5-5.0) g/dL Micro Results-Entire Visit: Microbiology 06/04/18 16:40 Blood Culture Gram Stain - Final Blood Not Reportable Blood Culture - Final NO GROWTH 06/04/18 16:45 Blood Culture Gram Stain - Final Blood Not Reportable Blood Culture - Final NO GROWTH - Procedures and Test Procedures and Tests throughout Hospitalization: Therapy Orders & Screens 06/04/18 16:04 Respiratory Nebulizer STAT Comment: Diagnosis: Shortness of Breath 06/04/18 16:33 Peak Expiratory Flow Rate ONCE Comment: Reason For Exam: Diagnosis: Shortness of Breath Respiratory Therapy Assessment DAILY Comment: Diagnosis: Shortness of Breath 06/04/18 20:09 Oxygen Nasal Cannula 2 lpm Comment: Diagnosis: Shortness of Breath Respiratory Therapy Consult ROUTINE Comment: Reason For Exam: Diagnosis: Shortness of Breath 06/04/18 21:21 Respiratory Therapy Assessment DAILY Comment: Diagnosis: Shortness of Breath 06/04/18 23:00 neb [Respiratory Nebulizer] Q4H Comment: Diagnosis: Shortness of Breath 06/05/18 00:13 RT Screen per Nursing Assess ONCE Comment: Protocol Order Physician Instructions: Greater than 3 points order RT Admission Screen Reason For Exam: Triggered on Admission Diagnosis: Exac COPD, PNE Diagnosis: Exac COPD, PNE Pneumonia: Yes Home O2: Yes Asthma: No CHF: No Home CPAP/BIPAP: No Home Nebs/MDI: Yes Total Points: 13 06/05/18 07:00 Respiratory MDI DAILY Comment: Diagnosis: Shortness of Breath Discharge Exam General Appearance: no apparent distress, alert Skin Exam: normal color, warm, dry Respiratory Exam: diminished breath sounds, prolonged expirations, wheezing Cardiovascular Exam: regular rate/rhythm, normal heart sounds Gastrointestinal/Abdomen Exam: soft, No tenderness, No mass Extremity Exam: normal inspection, normal range of motion Final Diagnosis/Problem List - Final Discharge Diagnosis/Problem (1) Pulmonary emboli Current Visit: Yes Status: Acute Code(s): I26.99 - OTHER PULMONARY EMBOLISM WITHOUT ACUTE COR PULMONALE (2) COPD exacerbation Current Visit: Yes Status: Acute Code(s): J44.1 - CHRONIC OBSTRUCTIVE PULMONARY DISEASE W (ACUTE) EXACERBATION (3) Breast cancer Current Visit: Yes Status: Acute - Discharge Disposition: Home, Self-Care Condition: Stable Prescriptions: New Prednisone 20 mg [Deltasone 20 mg] 20 mg PO UD #18 tablet Apixaban [Eliquis] 5 mg PO BID #60 tablet Continue Tiotropium [place] Inhaler [Spiriva 18 Mcg/Cap Inhaler] 1 puff IH DAILY Ranitidine HCl [Zantac] 150 mg PO DAILY Potassium 99 mg PO BID Levothyroxine Sodium 75 mcg PO DAILY Cetirizine HCl [Allergy Relief] 10 mg PO DAILY PRN PRN Reason: Allergies Allopurinol 300 mg [Zyloprim 300 mg] 300 mg PO DAILY Albuterol 2.5 mg/3 ml Neb [Proventil 2.5 mg/3 ml Neb] 2.5 mg IH Q4H PRN PRN PRN Reason: Shortness Of Breath/Wheezing Theophylline Anhydrous 300 mg* [Theodur 300MG] 300 mg PO DAILY Amlodipine Besylate 5 mg PO DAILY Ascorbic Acid [Vitamin C] 500 mg PO BID Albuterol 8 gm Mdi Hfa [Ventolin Hfa MDI] 90 mcg IH Q4-6HPRN PRN PRN Reason: Shortness Of Breath Prednisone 10 mg [Deltasone 10 mg] 5 mg PO UD Follow up with: BELLA CORMIER MD [Primary Care Provider] - 1 Week
[2018-06-12 09:47] VITALS: PULSE 108
[2018-06-12] MEDS: Levaquin 250MG/50ML D5W 250 MG/50 ML BAG IV SCH (09:56)
[2018-06-12] MEDS: ZYLOPRIM 300 MG PO SCH (10:03)
[2018-06-12] MEDS: LASIX 20 MG PO SCH (10:03)
[2018-06-12] MEDS: Klor Con 10 MEQ PO SCH (10:04)
[2018-06-12] MEDS: SYNTHROID 75 MCG PO SCH (10:04)
[2018-06-12] MEDS: NORVASC 5 MG PO SCH (10:11)
[2018-06-12] MEDS: ELIQUIS 2.5 MG TABLET PO SCH (10:11)
[2018-06-12] MEDS: Pepcid 20 MG PO SCH (10:12)
[2018-06-12] MEDS: THEOPHYLLINE ER 24HR PO SCH (10:15)
[2018-06-12 11:22] VITALS: O2SAT 96
== END 2018-06-12 11:32 | disposition home or self-care (01) | DRG 175 ==
LOC: ED 14:31 → MED SURG 20:05 → OBSVTOIN 06-06 08:35
PROVIDERS: ADMIT Family Medicine; ATTEND Family Medicine
DX: I26.99 Other pulmonary embolism without acute cor pulmonale (principal); J18.9 Pneumonia, unspecified organism; J44.1 Chronic obstructive pulmonary disease with (acute) exacerbation; C50.911 Malignant neoplasm of unspecified site of right female breast; Z99.81 Dependence on supplemental oxygen; I10 Essential (primary) hypertension; R33.9 Retention of urine, unspecified; E03.9 Hypothyroidism, unspecified; N28.9 Disorder of kidney and ureter, unspecified; Z79.01 Long term (current) use of anticoagulants; Z79.899 Other long term (current) drug therapy; M19.90 Unspecified osteoarthritis, unspecified site; M10.9 Gout, unspecified; F41.9 Anxiety disorder, unspecified; R53.1 Weakness; R60.0 Localized edema
CPT/HCPCS: 36000; 36415; 71045; 78582; 80048; 80053; 83735; 84484; 85025; 85027; 85379; 85610; 87040; 87631; 93005; 93268; 93306; 93970; 94150; 94640; 94760; 94762; 96360; 96361; 96365; 96367; 96374; 99285; A9540; A9567; G0378; Q3014; J0456; J0696; J1650; J1940; J1956; J2550; J2930; J7609; A9270-GY

== ENCOUNTER 2018-06-17 12:10 | Inpatient (IN) | payer MEDICARE ==
[2018-06-17] MEDS ORDERED: solu-MEDROL 125 MG IV ONE (12:16)
--- NOTE | 2018-06-17 12:22 | ERPHSYRPT ---
- History of Present Illness Time Seen by Provider: 06/17/18 12:14 Source: patient, EMS Exam Limitations: clinical condition Physician History: Pt was discharged from here 5 days ago, treated with Pneumonia. She developed severe SOB overnight and transported here in distress, in CPAP. She is moaning in pain, c/o "side pain", denies fever, vomiting or chest pain, however history is very limited due to her condition. She was given a Duoneb treatment by EMS. Timing/Duration: yesterday Activities at Onset: none Severity of Dyspnea-Max: severe Severity of Dyspnea-Current: severe Possible Cause: unknown cause Modifying Factors: Improves With: nothing Associated Symptoms: constant, chest pain/discomfort Allergies/Adverse Reactions: No Known Drug Allergies Allergy (Unverified 06/04/18 15:42) Home Medications: Albuterol 2.5 mg/3 ml Neb [Proventil 2.5 mg/3 ml Neb] 2.5 mg IH Q4H PRN PRN 06/04/18 [History] Albuterol 8 gm Mdi Hfa [Ventolin Hfa MDI] 90 mcg IH Q4-6HPRN PRN 06/04/18 [History] Allopurinol 300 mg [Zyloprim 300 mg] 300 mg PO DAILY 06/04/18 [History] Amlodipine Besylate 5 mg PO DAILY 06/04/18 [History] Ascorbic Acid [Vitamin C] 500 mg PO BID 06/04/18 [History] Cetirizine HCl [Allergy Relief] 10 mg PO DAILY PRN 06/04/18 [History] Levothyroxine Sodium 75 mcg PO DAILY 06/04/18 [History] Potassium 99 mg PO BID 06/04/18 [History] Prednisone 10 mg [Deltasone 10 mg] 5 mg PO UD 06/04/18 [History] Ranitidine HCl [Zantac] 150 mg PO DAILY 06/04/18 [History] Theophylline Anhydrous 300 mg* [Theodur 300MG] 300 mg PO DAILY 06/04/18 [ History] Tiotropium [place] Inhaler [Spiriva 18 Mcg/Cap Inhaler] 1 puff IH DAILY [History] Hx Tetanus, Diphtheria Vaccination/Date Given: No Hx Influenza Vaccination/Date Given: Yes Hx Pneumococcal Vaccination/Date Given: Yes - Review of Systems Constitutional: No Symptoms All Other Systems: Unable due to condition - Past Medical History Pertinent Past Medical History: Yes Neurological History: No Pertinent History ENT History: Cataracts Cardiac History: No Pertinent History Respiratory History: COPD Endocrine Medical History: No Pertinent History Musculoskeletal History: Arthritis GI Medical History: No Pertinent History History: No Pertinent History Psycho-Social History: No Pertinent History Female Reproductive Disorders: No Pertinent History Other Medical History: Breast CA - Past Surgical History Past Surgical History: Yes Neuro Surgical History: No Pertinent History Cardiac: No Pertinent History Respiratory: No Pertinent History Gastrointestinal: No Pertinent History Female Surgical History: Hysterectomy, Lumpectomy Other Surgical History: lumpectomy and radiation, states has cancer in right breast but cannot have surgery yet - Social History Smoking Status: Former smoker Exposure to second hand smoke: No Drug Use: none Patient Lives Alone: Yes - Nursing Vital Signs Nursing Vital Signs: Initial Vital Signs Pulse Rate 127 H 06/17/18 12:15 Respiratory Rate 28 H 06/17/18 12:15 Blood Pressure 112/53 06/17/18 12:15 O2 Sat by Pulse Oximetry 95 06/17/18 12:15 Pain Scale Pain Intensity 5 - Physical Exam General Appearance: moderate distress Eye Exam: eyes nml inspection Ears, Nose, Throat Exam: normal ENT inspection Neck Exam: normal inspection, supple, No JVD Respiratory Exam: crackles/rales, rhonchi (right base) Cardiovascular/Chest Exam: normal heart sounds, regular rate/rhythm, normal peripheral pulses, No murmur, No edema, No JVD Abdominal/Gastrointestinal Exam: soft, tenderness (diffuse, upper abdomen), distention, No ecchymosis Extremity Exam: non-tender, No no calf tenderness, No no pedal edema Peripheral Pulses Exam: dorsalis-pedis (R): 1+, dorsalis-pedis (L): 1+ Neurologic Exam: alert, oriented x 3, other (anxious) Skin Exam: normal color, warm, dry, No rash SpO2 Interpretation: borderline oxygenation O2 Delivery: BiPap/CPAP - Course Nursing assessment & vital signs reviewed: Yes EKG Interpreted by Me: RATE (108/min), Sinus Tach, NORMAL AXIS, Non-specific ST Changes, Other (frequent PaC-s) - Radiology Exams Chest X-ray Interpretation: Interpreted by me, Other (large RLL infiltrate) Ordered Tests: Active Orders 24 hr Category Date Time Status Boiler Attendant STAT Care 06/17/18 12:16 Active EKG-ER Only STAT Care 06/17/18 12:14 Active IV Insertion STAT Care 06/17/18 12:14 Active CHEST 1 VIEW (PORTABLE) Stat Exams 06/17/18 12:15 Taken ABG [ARTERIAL BLOOD GASES] Stat Lab 06/17/18 12:16 Ordered ARTERIAL BLOOD GASES Urgent Lab 06/17/18 12:14 Completed BLOOD CULTURE Stat Lab 06/17/18 12:35 Received CBC W DIFF Stat Lab 06/17/18 12:30 Results CK-Creatinine Phosphokinase Stat Lab 06/17/18 12:30 Completed CMP Stat Lab 06/17/18 12:30 Completed LIPASE Stat Lab 06/17/18 12:30 Completed Lactic Acid Stat Lab 06/17/18 12:14 Results MAGNESIUM Stat Lab 06/17/18 12:30 Completed Manual Differential NC Stat Lab 06/17/18 12:30 Results NT PRO BNP Stat Lab 06/17/18 12:30 Completed PROTIME WITH INR Stat Lab 06/17/18 12:30 Completed PTT Stat Lab 06/17/18 12:30 Completed Pathologist Review Stat Lab 06/17/18 12:30 Results TROPONIN Q3H Lab 06/17/18 12:30 Completed TROPONIN Q3H Lab 06/17/18 15:15 Ordered TROPONIN Q3H Lab 06/17/18 18:15 Ordered TROPONIN Q3H Lab 06/17/18 21:15 Ordered TROPONIN Q3H Lab 06/18/18 00:15 Ordered UA W/RFX UR CULTURE Stat Lab 06/17/18 12:15 Uncollected Urine Triage Profile Stat Lab 06/17/18 12:15 Uncollected BiPap/CPAP STAT RT 06/17/18 12:16 Completed Respiratory Therapy Assessment DAILY RT 06/17/18 12:38 Completed Medication Summary Generic Name Dose Route Start Last Admin Trade Name Freq PRN Reason Stop Dose Admin Sodium Chloride 500 mls @ 500 mls/hr 06/17/18 12:38 06/17/18 12:41 Sodium Chloride 0.9% 500 Ml IV 06/17/18 13:37 500 mls/hr .Q1H ONE Administration Levofloxacin/Dextrose 750 mg in 150 mls @ 100 mls/hr 06/17/18 12:39 06/17/18 13:06 Levofloxacin 750mg/150ml D5w IV 06/17/18 14:08 100 ml/hr STAT STA 100 mls/hr Administration Discontinued Medications Generic Name Dose Route Start Last Admin Trade Name Mahnaz PRN Reason Stop Dose Admin Albuterol/Ipratropium 3 ml 06/17/18 12:31 06/17/18 12:39 Duoneb 0.5-3 Mg/3 Ml Neb IH 06/17/18 12:32 3 ml STAT ONE Administration Albuterol/Ipratropium Confirm 06/17/18 12:33 Duoneb 0.5-3 Mg/3 Ml Neb Administered 06/17/18 12:34 Dose 3 ml IH .STK-MED ONE Levofloxacin/Dextrose Confirm 06/17/18 13:03 Levofloxacin 750mg/150ml D5w Administered 06/17/18 13:04 Dose 750 mg in 150 mls @ ud IV .STK-MED ONE Sodium Chloride Confirm 06/17/18 13:08 Sodium Chloride 0.9% 1000 Ml Administered 06/17/18 13:09 Dose 1,000 mls @ ud .ROUTE .STK-MED ONE Methylprednisolone Sodium Succinate 125 mg 06/17/18 12:16 06/17/18 12:32 Solu-Medrol 125 Mg IV 06/17/18 12:17 125 mg STAT ONE Administration Methylprednisolone Sodium Succinate Confirm 06/17/18 12:26 Solu-Medrol 125 Mg Administered 06/17/18 12:27 Dose 125 mg .ROUTE .STK-MED ONE Lab/Rad Data: Laboratory Result Diagrams 06/17/18 12:30 06/17/18 12:30 Laboratory Results 06/17/18 06/17/18 06/17/18 Range/Units 12:30 12:30 12:30 WBC (4.0-10.5) K/mm3 RBC (4.1-5.4) M/mm3 Hgb (12.0-16.0) gm/dl Hct (35-47) % MCV (78-100) fl MCH (26-32) pg MCHC (32-36) g/dl RDW (11.5-14.0) % Plt Count (150-450) K/mm3 MPV (6-9.5) fl Segmented Neutrophils (36.0-66.0) % Band Neutrophils (0.0-2.0) % Lymphocytes (Manual) (24-44) % Toxic Granulation Platelet Estimate (NORMAL) RBC Morphology Poikilocytosis Anisocytosis Smear Path Review PT 23.2 H (9.95-12.35) SECONDS INR 1.98 (0.8-3.0) APTT 29.3 (25.3-37.0) SECONDS Puncture Site pCO2 (35-45) mmHg pO2 (75-100) mmHg Base Excess (-2.0-2.0) O2 Saturation (94-100) g/dF ABG pH (7.35-7.45) ABG HCO3 (22-28) ABG O2 Sat (Measured) (95-100) % Ori Test A-a Gradient a/A Ratio Hemoglobin Carboxyhemoglobin (0.0-6.9) % THgb Methemoglobin (1.4-1.5) % Potassium 3.9 (3.5-5.1) Temperature C POC O2 Flow Rate % Sodium 137 (137-145) mmol/L Chloride 99 (98-107) mmol/L Carbon Dioxide 28 (22-30) mmol/L Anion Gap 14.0 (5-15) MEQ/L BUN 45 H (7-17) mg/dL Creatinine 2.14 H (0.52-1.04) mg/dL Estimated GFR 23.9 ML/MIN Glucose 137 H (74-106) mg/dL Lactic Acid (0.4-2.0) Calcium 8.7 (8.4-10.2) mg/dL Magnesium 1.6 (1.6-2.3) mg/dL Total Bilirubin 0.60 (0.2-1.3) mg/dL AST 16 (14-36) U/L ALT 20 (0-35) U/L Alkaline Phosphatase 75 (38-126) U/L Creatine Kinase 20 L (30-135) U/L Troponin I 0.027 (0.000-0.034) ng/mL NT-Pro-B Natriuret Pep 1610 H (0-900) pg/mL Serum Total Protein 5.9 L (6.3-8.2) g/dL Albumin 3.1 L (3.5-5.0) g/dL Lipase 63 (23-300) U/L 06/17/18 06/17/18 06/17/18 Range/Units 12:30 12:14 12:14 WBC 41.5 H* (4.0-10.5) K/mm3 RBC 4.30 (4.1-5.4) M/mm3 Hgb 12.7 (12.0-16.0) gm/dl Hct 38.9 (35-47) % MCV 90.5 (78-100) fl MCH 29.5 (26-32) pg MCHC 32.6 (32-36) g/dl RDW 16.3 H (11.5-14.0) % Plt Count 236 (150-450) K/mm3 MPV 12.4 H (6-9.5) fl Segmented Neutrophils 84 H (36.0-66.0) % Band Neutrophils 15 H (0.0-2.0) % Lymphocytes (Manual) 1 L (24-44) % Toxic Granulation 1+ Platelet Estimate NORMAL (NORMAL) RBC Morphology ABNORMAL Poikilocytosis 1+ Anisocytosis 1+ Smear Path Review Pending PT (9.95-12.35) SECONDS INR (0.8-3.0) APTT (25.3-37.0) SECONDS Puncture Site LEFT RADIAL pCO2 33 L (35-45) mmHg pO2 64 L (75-100) mmHg Base Excess 2.9 H (-2.0-2.0) O2 Saturation 92.5 L (94-100) g/dF ABG pH 7.50 H (7.35-7.45) ABG HCO3 25.7 (22-28) ABG O2 Sat (Measured) 96.3 (95-100) % Ori Test YES A-a Gradient 608 a/A Ratio 0.10 Hemoglobin 12.9 Carboxyhemoglobin 2.3 (0.0-6.9) % THgb Methemoglobin 1.6 H (1.4-1.5) % Potassium 3.7 (3.5-5.1) Temperature 37.0 C POC O2 Flow Rate 100 % Sodium (137-145) mmol/L Chloride (98-107) mmol/L Carbon Dioxide (22-30) mmol/L Anion Gap (5-15) MEQ/L BUN (7-17) mg/dL Creatinine (0.52-1.04) mg/dL Estimated GFR ML/MIN Glucose (74-106) mg/dL Lactic Acid 2.3 H (0.4-2.0) Calcium (8.4-10.2) mg/dL Magnesium (1.6-2.3) mg/dL Total Bilirubin (0.2-1.3) mg/dL AST (14-36) U/L ALT (0-35) U/L Alkaline Phosphatase (38-126) U/L Creatine Kinase (30-135) U/L Troponin I (0.000-0.034) ng/mL NT-Pro-B Natriuret Pep (0-900) pg/mL Serum Total Protein (6.3-8.2) g/dL Albumin (3.5-5.0) g/dL Lipase (23-300) U/L - Progress Progress: improved Air Movement: fair Progress Note: 06/17/18 13:33 Pt was changed to NRB 15 l/min, feels better, no fever, stable, we called Dr Cormier, discussed our results and her current condition, he agreed to admit her to ICU, we informed patient and her family, they agreed. Blood Culture(s) Obtained: Yes Antibiotics given: Yes Discussed with .: Julio César Will see patient in: hospital (full admit) Counseled pt/family regarding: lab results, diagnosis, rad results - Departure Departure Disposition: In-patient Admission Clinical Impression: Respiratory distress Pneumonia Qualifiers: Pneumonia type: due to unspecified organism Laterality: right Lung location: lower lobe of lung Qualified Code(s): J18.1 - Lobar pneumonia, unspecified organism Condition: Fair Critical Care Time: Yes Critical Care Time(excluding separately billable procedures): 30-74 minutes Referrals: BELLA CORMIER MD [Primary Care Provider] - Instructions: Pneumonia, Adult (DC)
[2018-06-17 12:26] LABS: A-aADO2 608; ABG HEMOGLOBIN 12.9; ABG POTASSIUM 3.7 (3.5-5.1); ABG SITE LEFT RADIAL; ALLEN TEST OK? YES; ARTERIAL BLD GAS O2 SATURATION 96.3 % (95-100); ARTERIAL BLOOD GAS BASE EXCESS 2.9 (-2.0-2.0); ARTERIAL BLOOD GAS FIO2 100 %; ARTERIAL BLOOD GAS PCO2 33 mmHg (35-45); ARTERIAL BLOOD GAS PO2 64 mmHg (75-100); CARBOXYHEMOGLOBIN 2.3 % THgb (0.0-6.9); HCO3- 25.7 (22-28); HGB O2 SAT 92.5 g/dF (94-100); Methhemoglobin 1.6 % (1.4-1.5)
[2018-06-17] MEDS ORDERED: solu-MEDROL 125 MG ONE (12:26)
[2018-06-17 12:27] LABS: Lactic Acid 2.3 (0.4-2.0)
[2018-06-17] MEDS ORDERED: DUONEB 0.5-3 MG/3 ml Neb IH ONE ×2 (12:31→12:33)
[2018-06-17] MEDS ORDERED: Sodium Chloride 0.9% 500 ML 500 ML IV ONE (12:38)
[2018-06-17] MEDS ORDERED: LEVOFLOXACIN 750MG/150ML D5W 750 MG/150 ML BAG IV STA (12:39)
[2018-06-17 12:44] LABS: Hematocrit 38.9 % (35-47); Hemoglobin 12.7 gm/dl (12.0-16.0); Mean Cell Volume 90.5 fl (78-100); Mean Corpuscular Hemoglobin 29.5 pg (26-32); Mean Corpuscular Hgb Concent. 32.6 g/dl (32-36); Mean Platelet Volume 12.4 fl (6-9.5); Platelet Count 236 K/mm3 (150-450); Red Cell Distribution Width 16.3 % (11.5-14.0)
[2018-06-17 12:52] LABS: White Blood Count 41.5 K/mm3 (4.0-10.5)
[2018-06-17 12:57] LABS: INR 1.98 (0.8-3.0); PROTIME 23.2 SECONDS (9.95-12.35)
[2018-06-17 13:00] LABS: PTT 29.3 SECONDS (25.3-37.0)
[2018-06-17] MEDS ORDERED: LEVOFLOXACIN 750MG/150ML D5W 750 MG/150 ML BAG IV ONE (13:03)
[2018-06-17] MEDS ORDERED: Sodium Chloride 0.9% 1000 ML 1,000 ML ONE (13:08)
[2018-06-17 13:16] LABS: ALBUMIN 3.1 g/dL (3.5-5.0); BILIRUBIN,TOTAL 0.6 mg/dL (0.2-1.3); Calcium 8.7 mg/dL (8.4-10.2); Creatinine 1 2.14 mg/dL (0.52-1.04); MAGNESIUM 1.6 mg/dL (1.6-2.3); Potassium 3.9 mmol/L (3.5-5.1); Total Protein 5.9 g/dL (6.3-8.2)
[2018-06-17 13:20] LABS: ANISOCYTOSIS 1+; BAND 15 % (0.0-2.0); Lymphocytes 1 % (24-44); Neutrophils 84 % (36.0-66.0); Poikilocytosis 1+; Total Cells Counted 100; Toxic Granulation 1+
[2018-06-17 13:21] LABS: Platelet Estimate NORMAL (NORMAL)
[2018-06-17] MEDS ORDERED: NovoLOG Insulin SQ PRN (13:43)
[2018-06-17] MEDS ORDERED: DUONEB 0.5-3 MG/3 ml Neb IH SCH (15:00)
[2018-06-17] MEDS ORDERED: NON-FORMULARY ITEM (Cetirizine Hcl [Allergy Relief] 10 MG) PO PRN (15:22)
[2018-06-17] MEDS ORDERED: CLARITIN 10 MG PO PRN (15:26)
[2018-06-17] MEDS ORDERED: Sodium Chloride 0.9% 1000 ML 1,000 ML IV SCH (15:30)
[2018-06-17] MEDS ORDERED: MEDICATION INTERVENTION PO SCH (15:30)
[2018-06-17] MEDS ORDERED: PROVENTIL 2.5 MG/3 ML NEB IH ONE (15:33)
[2018-06-17] MEDS: PROVENTIL 2.5 MG/3 ML NEB IH SCH ×3 (15:39→23:59)
[2018-06-17] MEDS ORDERED: NORCO 5/325 MG PO PRN (16:08)
[2018-06-17] MEDS: THEOPHYLLINE ER 24HR PO SCH (16:14)
[2018-06-17] MEDS: SYNTHROID 75 MCG PO SCH (16:15)
[2018-06-17] MEDS: Pepcid 20 MG PO SCH (16:15)
[2018-06-17] MEDS: ZYLOPRIM 300 MG PO SCH (16:15)
[2018-06-17] MEDS: NORVASC 5 MG PO SCH (16:15)
[2018-06-17] MEDS ORDERED: NORCO 5/325 MG ONE (16:18)
--- NOTE | 2018-06-17 16:43 | XRAY ---
Indication: Dyspnea. Comparison: June 06, 2018. Portable chest demonstrates new diffuse right lung airspace disease with tiny effusion. Remaining heart and left lung unremarkable. Bony thorax intact.
[2018-06-17] MEDS: solu-MEDROL 125 MG IV SCH ×2 (19:14→23:58)
[2018-06-17] MEDS: Spiriva 18 Mcg/Cap Inhaler IH SCH (19:36)
[2018-06-17] MEDS: NORCO 5/325 MG PO PRN (20:20)
[2018-06-17] MEDS: Vitamin C 500 MG PO SCH (21:31)
[2018-06-17] MEDS: ELIQUIS 2.5 MG TABLET PO SCH (21:31)
[2018-06-17] MEDS ORDERED: Pepcid 20 MG VIAL IV SCH (22:00)
[2018-06-17] MEDS ORDERED: NON-FORMULARY ITEM (Potassium [Potassium] 99 MG) PO SCH (22:00)
[2018-06-17] MEDS ORDERED: NON-FORMULARY ITEM (Apixaban [Eliquis] 5 MG) PO SCH (22:00)
[2018-06-17] MEDS: Sodium Chloride 0.9% 1000 ML 1,000 ML IV SCH (22:19)
[2018-06-18] MEDS: NORCO 5/325 MG PO PRN ×3 (00:26→09:53)
[2018-06-18 01:07] LABS: Appearance SLIGHTLY CLOUDY (CLEAR); Bilirubin NEGATIVE (NEGATIVE); Blood NEGATIVE Ery/ul (0-5); Glucose NEGATIVE (NEGATIVE); Ketones NEGATIVE (NEGATIVE); Leukocyte Esterase NEGATIVE (NEGATIVE); Mucus SLIGHT /HPF (NEGATIVE); Nitrite NEGATIVE (NEGATIVE); Protein,Urine Dip 30 (Negative); Specific Gravity 1.019 (1.005-1.025); Urobilinogen NEGATIVE mg/dL (0-1)
[2018-06-18 01:08] LABS: Bacteria NONE SEEN /HPF (NEGATIVE)
[2018-06-18] MEDS: SUBLIMAZE 100 MCG/2 ML IV PRN ×3 (01:18→22:44)
[2018-06-18 01:21] LABS: Amphetamine,Urine NEGATIVE (NEGATIVE); Barbiturate,Urine NEGATIVE (NEGATIVE); Benzodiazepine,Urine NEGATIVE (NEGATIVE); Cocaine,Urine NEGATIVE (NEGATIVE); Methadone,Urine NEGATIVE (NEGATIVE); Opiate,Urine POSITIVE (NEGATIVE); PCP,Urine NEGATIVE (NEGATIVE); THC,Urine NEGATIVE (NEGATIVE)
[2018-06-18 01:32] LABS: Hematocrit 36.9 % (35-47); Mean Cell Volume 90.7 fl (78-100); Mean Corpuscular Hgb Concent. 32.5 g/dl (32-36); Mean Platelet Volume 12.7 fl (6-9.5); Platelet Count 219 K/mm3 (150-450); Red Blood Count 4.07 M/mm3 (4.1-5.4); Red Cell Distribution Width 16.5 % (11.5-14.0)
[2018-06-18 01:42] LABS: Mean Corpuscular Hemoglobin 29.4 pg (26-32); White Blood Count 25.2 K/mm3 (4.0-10.5)
[2018-06-18] MEDS ORDERED: Lasix 20 MG/2 ML IV ONE (01:50)
[2018-06-18 02:11] LABS: ANION GAP 18.1 MEQ/L (5-15); Calcium 7.3 mg/dL (8.4-10.2); Creatinine 1 2.07 mg/dL (0.52-1.04); Potassium 4.3 mmol/L (3.5-5.1)
[2018-06-18] MEDS: PROVENTIL 2.5 MG/3 ML NEB IH SCH ×6 (03:53→22:55)
[2018-06-18 05:27] LABS: A-aADO2 593; ABG HEMOGLOBIN 12.3; ARTERIAL BLOOD GAS BASE EXCESS -5.6 (-2.0-2.0); ARTERIAL BLOOD GAS FIO2 100 %; ARTERIAL BLOOD GAS PCO2 35 mmHg (35-45); ARTERIAL BLOOD GAS PO2 76 mmHg (75-100); ARTERIAL BLOOD GAS pH 7.35 (7.35-7.45); CARBOXYHEMOGLOBIN 1.7 % THgb (0.0-6.9); HCO3- 19.3 (22-28); HGB O2 SAT 94.3 g/dF (94-100); Methhemoglobin 1.1 % (1.4-1.5); paO2 pAO1 0.11
[2018-06-18] MEDS: solu-MEDROL 125 MG IV SCH ×3 (05:27→17:38)
[2018-06-18 05:28] LABS: ABG SITE LEFT RADIAL; ALLEN TEST OK? YES
[2018-06-18 05:29] LABS: Lactic Acid 3.5 (0.4-2.0)
--- NOTE | 2018-06-18 08:08 | PCM.HP ---
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 returned yesterday with severe shortness of breath, cough, difficulty breathing. found to have a pneumonia, she is quite dyspneic and not oxygenating well at this time. - Review of Systems Constitutional: No Fever, No Chills Respiratory: Cough, Short Of Breath Cardiac: No Chest Pain, No Edema, No Syncope Abdominal/Gastrointestinal: No Abdominal Pain, No Nausea, No Vomiting, No Diarrhea Skin: No Symptoms, No Rash All Other Systems: Reviewed and Negative Medications & Allergies Home Medications: Home Medication List Albuterol 2.5 mg/3 ml Neb [Proventil 2.5 mg/3 ml Neb] 2.5 mg IH Q4H PRN PRN 06/04/18 [History Confirmed 06/17/18] Albuterol 8 gm Mdi Hfa [Ventolin Hfa MDI] 90 mcg IH Q4-6HPRN PRN 06/04/18 [History Confirmed 06/17/18] Allopurinol 300 mg [Zyloprim 300 mg] 300 mg PO DAILY 06/04/18 [History Confirmed 06/17/18] Amlodipine Besylate 5 mg PO DAILY 06/04/18 [History Confirmed 06/17/18] Ascorbic Acid [Vitamin C] 500 mg PO BID 06/04/18 [History Confirmed 06/17/18] Cetirizine HCl [Allergy Relief] 10 mg PO DAILY PRN 06/04/18 [History Confirmed 06/17/18] Levothyroxine Sodium 75 mcg PO DAILY 06/04/18 [History Confirmed 06/17/18] Potassium 99 mg PO BID 06/04/18 [History Confirmed 06/17/18] Ranitidine HCl [Zantac] 150 mg PO DAILY 06/04/18 [History Confirmed 06/17/18] Theophylline Anhydrous 300 mg* [Theodur 300MG] 300 mg PO DAILY 06/04/18 [ History Confirmed 06/17/18] Tiotropium Mertzon Inhaler [Spiriva 18 Mcg/Cap Inhaler] 1 puff IH DAILY [History Confirmed 06/17/18] Apixaban [Eliquis] 5 mg PO BID #60 tablet 06/12/18 [Rx Confirmed 06/17/18] Prednisone 20 mg [Deltasone 20 mg] 20 mg PO UD #18 tablet 06/12/18 [Rx Confirmed 06/17/18] Allergies/Adverse Reactions: Allergies Allergy/AdvReac Type Severity Reaction Status Date / Time No Known Drug Allergies Allergy Unverified 06/04/18 15:42 - Past Medical History Past Medical History: Yes Neurological History: No Pertinent History ENT History: Cataracts Cardiac History: No Pertinent History Respiratory History: COPD Endocrine Medical History: No Pertinent History Musculoskelatal History: Arthritis GI Medical History: No Pertinent History History: No Pertinent History Pyscho-Social History: No Pertinent History Reproductive Disorders: No Pertinent History Comment: Right Breast CA - Female History Hx Last Menstrual Period: Post-menopause Are you now?: No - Past Surgical History Past Surgical History: Yes Neuro Surgical History: No Pertinent History Cardiac History: No Pertinent History Respiratory Surgery: No Pertinent History GI Surgical History: No Pertinent History Female Surgical History: Hysterectomy, Lumpectomy Other Surgical History: right breast lumpectomy with radiation, states has cancer in right breast but cannot have surgery yet - Social History Smoking Status: Former smoker Exposure to second hand smoke: No Alcohol: None Drug Use: none - Physical Exam Vital Signs: Vital Signs - 24 hr Temp Pulse Resp BP BP Pulse Ox 06/18/18 07:35 122 H 36 H 97 06/18/18 06:00 34 H 06/18/18 04:15 114 H 38 H 97 06/18/18 04:00 99.1 F 117 H 30 H 111/62 97 06/18/18 02:00 28 H 06/18/18 00:03 119 H 28 H 92 L 06/18/18 00:01 135 H 06/18/18 00:00 98.8 F 110 H 26 H 129/77 95 06/17/18 22:00 30 H 06/17/18 21:51 103 H 30 H 93 L 06/17/18 20:00 98.9 F 109 H 28 H 100/63 93 L 06/17/18 15:39 102 H 24 99 06/17/18 15:30 98.8 F 109 H 28 H 117/55 97 06/17/18 13:15 113 H 24 101/49 97 06/17/18 12:40 115 H 32 H 93 L 06/17/18 12:15 127 H 28 H 112/53 112/53 93 L Oxygen-Last 24 hours O2 Percentage 100% O2 Percentage 100% O2 Percentage 100% O2 Percentage 100% O2 Percentage 100% Oxygen Flowrate (L/min)-RT 50 Oxygen Flowrate (L/min)-RT 10 Oxygen Flowrate (L/min)-RT 10 Oxygen Flowrate (L/min)-RT 10 General Appearance: moderate distress Neurologic Exam: alert Eye Exam: PERRL/EOMI, eyes nml inspection Respiratory Exam: accessory muscle use, rhonchi Cardiovascular Exam: regular rate/rhythm, normal heart sounds, normal peripheral pulses Gastrointestinal/Abdomen Exam: soft, normal bowel sounds, No tenderness, No mass Extremity Exam: normal inspection, normal range of motion, pelvis stable Skin Exam: normal color, warm, dry, No rash Results - Labs Lab/Micro Results: Lab Results-Last 24 Hours 06/17/18 06/17/18 06/17/18 Range/Units 01:01 01:01 12:14 WBC (4.0-10.5) K/mm3 RBC (4.1-5.4) M/mm3 Hgb (12.0-16.0) gm/dl Hct (35-47) % MCV (78-100) fl MCH (26-32) pg MCHC (32-36) g/dl RDW (11.5-14.0) % Plt Count (150-450) K/mm3 MPV (6-9.5) fl Segmented Neutrophils (36.0-66.0) % Band Neutrophils (0.0-2.0) % Lymphocytes (Manual) (24-44) % Toxic Granulation Platelet Estimate (NORMAL) RBC Morphology Poikilocytosis Anisocytosis Smear Path Review PT (9.95-12.35) SECONDS INR (0.8-3.0) APTT (25.3-37.0) SECONDS Puncture Site pCO2 (35-45) mmHg pO2 (75-100) mmHg Base Excess (-2.0-2.0) O2 Saturation (94-100) g/dF ABG pH (7.35-7.45) ABG HCO3 (22-28) ABG O2 Sat (Measured) (95-100) % Ori Test A-a Gradient a/A Ratio Hemoglobin Carboxyhemoglobin (0.0-6.9) % THgb Methemoglobin (1.4-1.5) % Potassium (3.5-5.1) Temperature C POC O2 Flow Rate % Sodium (137-145) mmol/L Chloride (98-107) mmol/L Carbon Dioxide (22-30) mmol/L Anion Gap (5-15) MEQ/L BUN (7-17) mg/dL Creatinine (0.52-1.04) mg/dL Estimated GFR ML/MIN Glucose (74-106) mg/dL Lactic Acid 2.3 H (0.4-2.0) Calcium (8.4-10.2) mg/dL Magnesium (1.6-2.3) mg/dL Total Bilirubin (0.2-1.3) mg/dL AST (14-36) U/L ALT (0-35) U/L Alkaline Phosphatase (38-126) U/L Creatine Kinase (30-135) U/L Troponin I (0.000-0.034) ng/mL NT-Pro-B Natriuret Pep (0-900) pg/mL Serum Total Protein (6.3-8.2) g/dL Albumin (3.5-5.0) g/dL Lipase (23-300) U/L Urine Color YELLOW (YELLOW) Urine Appearance SLIGHTLY CLOUDY (CLEAR) Urine pH 5.0 (5-6) Ur Specific Willis 1.019 (1.005-1.025) Urine Protein 30 (Negative) Urine Ketones NEGATIVE (NEGATIVE) Urine Blood NEGATIVE (0-5) Jose/ul Urine Nitrite NEGATIVE (NEGATIVE) Urine Bilirubin NEGATIVE (NEGATIVE) Urine Urobilinogen NEGATIVE (0-1) mg/dL Ur Leukocyte Esterase NEGATIVE (NEGATIVE) Urine WBC (Auto) 3-5 (0-5) /HPF Urine RBC (Auto) NONE (0-2) /HPF U Epithel Cells (Auto) NONE (FEW) /HPF Urine Bacteria (Auto) NONE SEEN (NEGATIVE) /HPF Urine Mucus (Auto) SLIGHT (NEGATIVE) /HPF Urine Culture Reflexed NO (NO) Urine Glucose NEGATIVE (NEGATIVE) mg/dL Urine Opiates Level POSITIVE (NEGATIVE) Ur Methadone NEGATIVE (NEGATIVE) Urine Barbiturates NEGATIVE (NEGATIVE) Ur Phencyclidine (PCP) NEGATIVE (NEGATIVE) Urine Amphetamine NEGATIVE (NEGATIVE) U Benzodiazepine Level NEGATIVE (NEGATIVE) Urine Cocaine NEGATIVE (NEGATIVE) Urine Marijuana (THC) NEGATIVE (NEGATIVE) 06/17/18 06/17/18 06/17/18 Range/Units 12:14 12:30 12:30 WBC 41.5 H* (4.0-10.5) K/mm3 RBC 4.30 (4.1-5.4) M/mm3 Hgb 12.7 (12.0-16.0) gm/dl Hct 38.9 (35-47) % MCV 90.5 (78-100) fl MCH 29.5 (26-32) pg MCHC 32.6 (32-36) g/dl RDW 16.3 H (11.5-14.0) % Plt Count 236 (150-450) K/mm3 MPV 12.4 H (6-9.5) fl Segmented Neutrophils 84 H (36.0-66.0) % Band Neutrophils 15 H (0.0-2.0) % Lymphocytes (Manual) 1 L (24-44) % Toxic Granulation 1+ Platelet Estimate NORMAL (NORMAL) RBC Morphology ABNORMAL Poikilocytosis 1+ Anisocytosis 1+ Smear Path Review Pending PT (9.95-12.35) SECONDS INR (0.8-3.0) APTT (25.3-37.0) SECONDS Puncture Site LEFT RADIAL pCO2 33 L (35-45) mmHg pO2 64 L (75-100) mmHg Base Excess 2.9 H (-2.0-2.0) O2 Saturation 92.5 L (94-100) g/dF ABG pH 7.50 H (7.35-7.45) ABG HCO3 25.7 (22-28) ABG O2 Sat (Measured) 96.3 (95-100) % Ori Test YES A-a Gradient 608 a/A Ratio 0.10 Hemoglobin 12.9 Carboxyhemoglobin 2.3 (0.0-6.9) % THgb Methemoglobin 1.6 H (1.4-1.5) % Potassium 3.7 3.9 (3.5-5.1) Temperature 37.0 C POC O2 Flow Rate 100 % Sodium 137 (137-145) mmol/L Chloride 99 (98-107) mmol/L Carbon Dioxide 28 (22-30) mmol/L Anion Gap 14.0 (5-15) MEQ/L BUN 45 H (7-17) mg/dL Creatinine 2.14 H (0.52-1.04) mg/dL Estimated GFR 23.9 ML/MIN Glucose 137 H (74-106) mg/dL Lactic Acid (0.4-2.0) Calcium 8.7 (8.4-10.2) mg/dL Magnesium 1.6 (1.6-2.3) mg/dL Total Bilirubin 0.60 (0.2-1.3) mg/dL AST 16 (14-36) U/L ALT 20 (0-35) U/L Alkaline Phosphatase 75 (38-126) U/L Creatine Kinase 20 L (30-135) U/L Troponin I (0.000-0.034) ng/mL NT-Pro-B Natriuret Pep 1610 H (0-900) pg/mL Serum Total Protein 5.9 L (6.3-8.2) g/dL Albumin 3.1 L (3.5-5.0) g/dL Lipase 63 (23-300) U/L Urine Color (YELLOW) Urine Appearance (CLEAR) Urine pH (5-6) Ur Specific Willis (1.005-1.025) Urine Protein (Negative) Urine Ketones (NEGATIVE) Urine Blood (0-5) Jose/ul Urine Nitrite (NEGATIVE) Urine Bilirubin (NEGATIVE) Urine Urobilinogen (0-1) mg/dL Ur Leukocyte Esterase (NEGATIVE) Urine WBC (Auto) (0-5) /HPF Urine RBC (Auto) (0-2) /HPF U Epithel Cells (Auto) (FEW) /HPF Urine Bacteria (Auto) (NEGATIVE) /HPF Urine Mucus (Auto) (NEGATIVE) /HPF Urine Culture Reflexed (NO) Urine Glucose (NEGATIVE) mg/dL Urine Opiates Level (NEGATIVE) Ur Methadone (NEGATIVE) Urine Barbiturates (NEGATIVE) Ur Phencyclidine (PCP) (NEGATIVE) Urine Amphetamine (NEGATIVE) U Benzodiazepine Level (NEGATIVE) Urine Cocaine (NEGATIVE) Urine Marijuana (THC) (NEGATIVE) 04/07/19 04/07/19 04/07/19 Range/Units 12:30 12:30 15:14 WBC (4.0-10.5) K/mm3 RBC (4.1-5.4) M/mm3 Hgb (12.0-16.0) gm/dl Hct (35-47) % MCV (78-100) fl MCH (26-32) pg MCHC (32-36) g/dl RDW (11.5-14.0) % Plt Count (150-450) K/mm3 MPV (6-9.5) fl Segmented Neutrophils (36.0-66.0) % Band Neutrophils (0.0-2.0) % Lymphocytes (Manual) (24-44) % Toxic Granulation Platelet Estimate (NORMAL) RBC Morphology Poikilocytosis Anisocytosis Smear Path Review PT 23.2 H (9.95-12.35) SECONDS INR 1.98 (0.8-3.0) APTT 29.3 (25.3-37.0) SECONDS Puncture Site pCO2 (35-45) mmHg pO2 (75-100) mmHg Base Excess (-2.0-2.0) O2 Saturation (94-100) g/dF ABG pH (7.35-7.45) ABG HCO3 (22-28) ABG O2 Sat (Measured) (95-100) % Ori Test A-a Gradient a/A Ratio Hemoglobin Carboxyhemoglobin (0.0-6.9) % THgb Methemoglobin (1.4-1.5) % Potassium (3.5-5.1) Temperature C POC O2 Flow Rate % Sodium (137-145) mmol/L Chloride (98-107) mmol/L Carbon Dioxide (22-30) mmol/L Anion Gap (5-15) MEQ/L BUN (7-17) mg/dL Creatinine (0.52-1.04) mg/dL Estimated GFR ML/MIN Glucose (74-106) mg/dL Lactic Acid (0.4-2.0) Calcium (8.4-10.2) mg/dL Magnesium (1.6-2.3) mg/dL Total Bilirubin (0.2-1.3) mg/dL AST (14-36) U/L ALT (0-35) U/L Alkaline Phosphatase (38-126) U/L Creatine Kinase (30-135) U/L Troponin I 0.027 0.024 (0.000-0.034) ng/mL NT-Pro-B Natriuret Pep (0-900) pg/mL Serum Total Protein (6.3-8.2) g/dL Albumin (3.5-5.0) g/dL Lipase (23-300) U/L Urine Color (YELLOW) Urine Appearance (CLEAR) Urine pH (5-6) Ur Specific Willis (1.005-1.025) Urine Protein (Negative) Urine Ketones (NEGATIVE) Urine Blood (0-5) Jose/ul Urine Nitrite (NEGATIVE) Urine Bilirubin (NEGATIVE) Urine Urobilinogen (0-1) mg/dL Ur Leukocyte Esterase (NEGATIVE) Urine WBC (Auto) (0-5) /HPF Urine RBC (Auto) (0-2) /HPF U Epithel Cells (Auto) (FEW) /HPF Urine Bacteria (Auto) (NEGATIVE) /HPF Urine Mucus (Auto) (NEGATIVE) /HPF Urine Culture Reflexed (NO) Urine Glucose (NEGATIVE) mg/dL Urine Opiates Level (NEGATIVE) Ur Methadone (NEGATIVE) Urine Barbiturates (NEGATIVE) Ur Phencyclidine (PCP) (NEGATIVE) Urine Amphetamine (NEGATIVE) U Benzodiazepine Level (NEGATIVE) Urine Cocaine (NEGATIVE) Urine Marijuana (THC) (NEGATIVE) 06/17/18 06/17/18 06/18/18 Range/Units 18:07 21:13 01:28 WBC (4.0-10.5) K/mm3 RBC (4.1-5.4) M/mm3 Hgb (12.0-16.0) gm/dl Hct (35-47) % MCV (78-100) fl MCH (26-32) pg MCHC (32-36) g/dl RDW (11.5-14.0) % Plt Count (150-450) K/mm3 MPV (6-9.5) fl Segmented Neutrophils (36.0-66.0) % Band Neutrophils (0.0-2.0) % Lymphocytes (Manual) (24-44) % Toxic Granulation Platelet Estimate (NORMAL) RBC Morphology Poikilocytosis Anisocytosis Smear Path Review PT (9.95-12.35) SECONDS INR (0.8-3.0) APTT (25.3-37.0) SECONDS Puncture Site pCO2 (35-45) mmHg pO2 (75-100) mmHg Base Excess (-2.0-2.0) O2 Saturation (94-100) g/dF ABG pH (7.35-7.45) ABG HCO3 (22-28) ABG O2 Sat (Measured) (95-100) % Ori Test A-a Gradient a/A Ratio Hemoglobin Carboxyhemoglobin (0.0-6.9) % THgb Methemoglobin (1.4-1.5) % Potassium (3.5-5.1) Temperature C POC O2 Flow Rate % Sodium (137-145) mmol/L Chloride (98-107) mmol/L Carbon Dioxide (22-30) mmol/L Anion Gap (5-15) MEQ/L BUN (7-17) mg/dL Creatinine (0.52-1.04) mg/dL Estimated GFR ML/MIN Glucose (74-106) mg/dL Lactic Acid (0.4-2.0) Calcium (8.4-10.2) mg/dL Magnesium (1.6-2.3) mg/dL Total Bilirubin (0.2-1.3) mg/dL AST (14-36) U/L ALT (0-35) U/L Alkaline Phosphatase (38-126) U/L Creatine Kinase (30-135) U/L Troponin I 0.021 0.019 0.016 (0.000-0.034) ng/mL NT-Pro-B Natriuret Pep (0-900) pg/mL Serum Total Protein (6.3-8.2) g/dL Albumin (3.5-5.0) g/dL Lipase (23-300) U/L Urine Color (YELLOW) Urine Appearance (CLEAR) Urine pH (5-6) Ur Specific Willis (1.005-1.025) Urine Protein (Negative) Urine Ketones (NEGATIVE) Urine Blood (0-5) Jose/ul Urine Nitrite (NEGATIVE) Urine Bilirubin (NEGATIVE) Urine Urobilinogen (0-1) mg/dL Ur Leukocyte Esterase (NEGATIVE) Urine WBC (Auto) (0-5) /HPF Urine RBC (Auto) (0-2) /HPF U Epithel Cells (Auto) (FEW) /HPF Urine Bacteria (Auto) (NEGATIVE) /HPF Urine Mucus (Auto) (NEGATIVE) /HPF Urine Culture Reflexed (NO) Urine Glucose (NEGATIVE) mg/dL Urine Opiates Level (NEGATIVE) Ur Methadone (NEGATIVE) Urine Barbiturates (NEGATIVE) Ur Phencyclidine (PCP) (NEGATIVE) Urine Amphetamine (NEGATIVE) U Benzodiazepine Level (NEGATIVE) Urine Cocaine (NEGATIVE) Urine Marijuana (THC) (NEGATIVE) 06/18/18 06/18/18 06/18/18 Range/Units 01:29 01:29 05:24 WBC 25.2 H* (4.0-10.5) K/mm3 RBC 4.07 L (4.1-5.4) M/mm3 Hgb 12.0 (12.0-16.0) gm/dl Hct 36.9 (35-47) % MCV 90.7 (78-100) fl MCH 29.4 (26-32) pg MCHC 32.5 (32-36) g/dl RDW 16.5 H (11.5-14.0) % Plt Count 219 (150-450) K/mm3 MPV 12.7 H (6-9.5) fl Segmented Neutrophils (36.0-66.0) % Band Neutrophils (0.0-2.0) % Lymphocytes (Manual) (24-44) % Toxic Granulation Platelet Estimate (NORMAL) RBC Morphology Poikilocytosis Anisocytosis Smear Path Review PT (9.95-12.35) SECONDS INR (0.8-3.0) APTT (25.3-37.0) SECONDS Puncture Site pCO2 (35-45) mmHg pO2 (75-100) mmHg Base Excess (-2.0-2.0) O2 Saturation (94-100) g/dF ABG pH (7.35-7.45) ABG HCO3 (22-28) ABG O2 Sat (Measured) (95-100) % Ori Test A-a Gradient a/A Ratio Hemoglobin Carboxyhemoglobin (0.0-6.9) % THgb Methemoglobin (1.4-1.5) % Potassium 4.3 (3.5-5.1) Temperature C POC O2 Flow Rate % Sodium 134 L (137-145) mmol/L Chloride 102 (98-107) mmol/L Carbon Dioxide 19 L (22-30) mmol/L Anion Gap 18.1 H (5-15) MEQ/L BUN 49 H (7-17) mg/dL Creatinine 2.07 H (0.52-1.04) mg/dL Estimated GFR 24.9 ML/MIN Glucose 253 H (74-106) mg/dL Lactic Acid 3.5 H (0.4-2.0) Calcium 7.3 L D (8.4-10.2) mg/dL Magnesium (1.6-2.3) mg/dL Total Bilirubin (0.2-1.3) mg/dL AST (14-36) U/L ALT (0-35) U/L Alkaline Phosphatase (38-126) U/L Creatine Kinase (30-135) U/L Troponin I (0.000-0.034) ng/mL NT-Pro-B Natriuret Pep (0-900) pg/mL Serum Total Protein (6.3-8.2) g/dL Albumin (3.5-5.0) g/dL Lipase (23-300) U/L Urine Color (YELLOW) Urine Appearance (CLEAR) Urine pH (5-6) Ur Specific Willis (1.005-1.025) Urine Protein (Negative) Urine Ketones (NEGATIVE) Urine Blood (0-5) Jose/ul Urine Nitrite (NEGATIVE) Urine Bilirubin (NEGATIVE) Urine Urobilinogen (0-1) mg/dL Ur Leukocyte Esterase (NEGATIVE) Urine WBC (Auto) (0-5) /HPF Urine RBC (Auto) (0-2) /HPF U Epithel Cells (Auto) (FEW) /HPF Urine Bacteria (Auto) (NEGATIVE) /HPF Urine Mucus (Auto) (NEGATIVE) /HPF Urine Culture Reflexed (NO) Urine Glucose (NEGATIVE) mg/dL Urine Opiates Level (NEGATIVE) Ur Methadone (NEGATIVE) Urine Barbiturates (NEGATIVE) Ur Phencyclidine (PCP) (NEGATIVE) Urine Amphetamine (NEGATIVE) U Benzodiazepine Level (NEGATIVE) Urine Cocaine (NEGATIVE) Urine Marijuana (THC) (NEGATIVE) 06/18/18 Range/Units 05:25 WBC (4.0-10.5) K/mm3 RBC (4.1-5.4) M/mm3 Hgb (12.0-16.0) gm/dl Hct (35-47) % MCV (78-100) fl MCH (26-32) pg MCHC (32-36) g/dl RDW (11.5-14.0) % Plt Count (150-450) K/mm3 MPV (6-9.5) fl Segmented Neutrophils (36.0-66.0) % Band Neutrophils (0.0-2.0) % Lymphocytes (Manual) (24-44) % Toxic Granulation Platelet Estimate (NORMAL) RBC Morphology Poikilocytosis Anisocytosis Smear Path Review PT (9.95-12.35) SECONDS INR (0.8-3.0) APTT (25.3-37.0) SECONDS Puncture Site LEFT RADIAL pCO2 35 (35-45) mmHg pO2 76 (75-100) mmHg Base Excess -5.6 L (-2.0-2.0) O2 Saturation 94.3 (94-100) g/dF ABG pH 7.35 (7.35-7.45) ABG HCO3 19.3 L (22-28) ABG O2 Sat (Measured) 97.0 (95-100) % Ori Test YES A-a Gradient 593 a/A Ratio 0.11 Hemoglobin 12.3 Carboxyhemoglobin 1.7 (0.0-6.9) % THgb Methemoglobin 1.1 L (1.4-1.5) % Potassium 4.0 (3.5-5.1) Temperature 37.0 C POC O2 Flow Rate 100 % Sodium (137-145) mmol/L Chloride (98-107) mmol/L Carbon Dioxide (22-30) mmol/L Anion Gap (5-15) MEQ/L BUN (7-17) mg/dL Creatinine (0.52-1.04) mg/dL Estimated GFR ML/MIN Glucose (74-106) mg/dL Lactic Acid (0.4-2.0) Calcium (8.4-10.2) mg/dL Magnesium (1.6-2.3) mg/dL Total Bilirubin (0.2-1.3) mg/dL AST (14-36) U/L ALT (0-35) U/L Alkaline Phosphatase (38-126) U/L Creatine Kinase (30-135) U/L Troponin I (0.000-0.034) ng/mL NT-Pro-B Natriuret Pep (0-900) pg/mL Serum Total Protein (6.3-8.2) g/dL Albumin (3.5-5.0) g/dL Lipase (23-300) U/L Urine Color (YELLOW) Urine Appearance (CLEAR) Urine pH (5-6) Ur Specific Willis (1.005-1.025) Urine Protein (Negative) Urine Ketones (NEGATIVE) Urine Blood (0-5) Jose/ul Urine Nitrite (NEGATIVE) Urine Bilirubin (NEGATIVE) Urine Urobilinogen (0-1) mg/dL Ur Leukocyte Esterase (NEGATIVE) Urine WBC (Auto) (0-5) /HPF Urine RBC (Auto) (0-2) /HPF U Epithel Cells (Auto) (FEW) /HPF Urine Bacteria (Auto) (NEGATIVE) /HPF Urine Mucus (Auto) (NEGATIVE) /HPF Urine Culture Reflexed (NO) Urine Glucose (NEGATIVE) mg/dL Urine Opiates Level (NEGATIVE) Ur Methadone (NEGATIVE) Urine Barbiturates (NEGATIVE) Ur Phencyclidine (PCP) (NEGATIVE) Urine Amphetamine (NEGATIVE) U Benzodiazepine Level (NEGATIVE) Urine Cocaine (NEGATIVE) Urine Marijuana (THC) (NEGATIVE) - Radiology Impressions Radiology Exams & Impressions: Radiology Procedures Category Date Time Status CHEST 1 VIEW (PORTABLE) Routine Exams 06/18/18 08:02 Ordered CHEST 1 VIEW (PORTABLE) Stat Exams 06/17/18 12:15 Completed - Other Procedures and Tests Respiratory Therapy 06/17/18 15:05 Respiratory Therapy Assessment DAILY 06/18/18 02:28 Oxygen High Flow per RT 50% Assessment/Plan (1) Respiratory distress Current Visit: Yes Status: Acute Assessment & Plan: patient is on high flow oxygen at this time, recent gas reviewed, essentially poor oxygenation. will consult pulmonology, in the meantime continue high flow and supportive treatment. Code(s): R06.03 - ACUTE RESPIRATORY DISTRESS (2) Pneumonia Current Visit: Yes Status: Acute Qualifiers: Pneumonia type: due to unspecified organism Laterality: right Lung location: lower lobe of lung Qualified Code(s): J18.1 - Lobar pneumonia, unspecified organism Assessment & Plan: on levaquin, pulm consulted Code(s): J18.9 - PNEUMONIA, UNSPECIFIED ORGANISM (3) COPD exacerbation Current Visit: No Status: Acute Code(s): J44.1 - CHRONIC OBSTRUCTIVE PULMONARY DISEASE W (ACUTE) EXACERBATION (4) Acute on chronic renal failure Current Visit: Yes Status: Acute Assessment & Plan: needs hydration at this time. Code(s): N17.9 - ACUTE KIDNEY FAILURE, UNSPECIFIED; N18.9 - CHRONIC KIDNEY DISEASE, UNSPECIFIED
[2018-06-18] MEDS: Sodium Chloride 0.9% 500 ML 500 ML IV SCH (08:17)
--- NOTE | 2018-06-18 08:41 | XRAY ---
Indication: Pneumonia. Respiratory distress. Comparison: One day earlier. Portable apical lordotic chest again demonstrates diffuse right lung airspace disease with slight increasing consolidation midlung. Stable tiny right effusion. Heart and left lung remains unremarkable.
[2018-06-18] MEDS: SYNTHROID 75 MCG PO SCH (09:53)
[2018-06-18] MEDS: ZYLOPRIM 300 MG PO SCH (09:53)
[2018-06-18] MEDS: NORVASC 5 MG PO SCH (09:53)
[2018-06-18] MEDS: Vitamin C 500 MG PO SCH (09:53)
[2018-06-18] MEDS: Pepcid 20 MG PO SCH (09:53)
[2018-06-18] MEDS: ELIQUIS 2.5 MG TABLET PO SCH (09:53)
[2018-06-18] MEDS: THEOPHYLLINE ER 24HR PO SCH (09:54)
[2018-06-18] MEDS ORDERED: NON-FORMULARY ITEM (Ranitidine Hcl [Zantac] 150 MG) PO SCH (10:00)
[2018-06-18] MEDS ORDERED: THEOPHYLLINE ANHYDROUS 300 MG PO SCH (10:00)
[2018-06-18] MEDS: Spiriva 18 Mcg/Cap Inhaler IH SCH (10:23)
[2018-06-18] MEDS: Sodium Chloride 0.9% 1000 ML 1,000 ML IV SCH ×2 (12:37→18:24)
[2018-06-18 14:00] LABS: A-aADO2 584; ABG HEMOGLOBIN 12.4; ABG POTASSIUM 4.1 (3.5-5.1); ABG SITE RIGHT RADIAL; ALLEN TEST OK? YES; ARTERIAL BLD GAS O2 SATURATION 98.1 % (95-100); ARTERIAL BLOOD GAS BASE EXCESS -8.1 (-2.0-2.0); ARTERIAL BLOOD GAS FIO2 100 %; ARTERIAL BLOOD GAS PCO2 33 mmHg (35-45); ARTERIAL BLOOD GAS PO2 88 mmHg (75-100); ARTERIAL BLOOD GAS pH 7.32 (7.35-7.45); HGB O2 SAT 95.9 g/dF (94-100); Methhemoglobin 1.2 % (1.4-1.5); paO2 pAO1 0.13
[2018-06-18] MEDS ORDERED: PHARMACY DOSING REQUIRED: VANCOMYCIN IV ONE (14:00)
[2018-06-18] MEDS: Ativan 2 MG/1 ML VIAL IV PRN ×2 (14:39→18:54)
[2018-06-18] MEDS ORDERED: VANCOCIN 1 GM VIAL*** 1 GM in Sodium Chloride 0.9% 250 ML 250 ML IV SCH (15:00)
--- NOTE | 2018-06-18 15:02 | CONS ---
CONSULT DATE: 06/18/2018 REASON FOR CONSULT: Shortness of breath, respiratory failure, pneumonia. HISTORY: Nely Zarate is a 73 year-old woman with history of chronic obstructive pulmonary disease and chronic respiratory failure. The patient is on home oxygen. After calling her doctor she was sick with influenza and was admitted at [facility] where she was treated with the same. She was discharged home last week. However about three days after being home the patient started experiencing cough, shortness of breath but got progressively worse yesterday leading to another hospitalization. A chest x-ray performed had shown right lung infiltrate. In addition, she had a VQ scan which showed likely high probability. She has been started on anticoagulation. Her blood cultures have also revealed positive gram-cocci and antibiotics were changed. She received Levaquin last night which has been continued. In addition, she has been started on IV Vancomycin. At the time of my evaluation the patient is on high flow oxygen. She is awake, alert, able to talk. She appears mildly tachypneic and tachycardic at rest. According to family, the patient had been diagnosed with chronic obstructive pulmonary disease although she quit smoking several years ago. She has been on supplemental oxygen that usually she only used at night prior to this admission. Her effort tolerance has been moderately reduced. PAST MEDICAL HISTORY: Negative for any common cardiac or medical problems. However, the patient did have history of right breast cancer that was treated with lumpectomy and radiation therapy several years ago. It has apparently recurred. The patient is not a candidate for additional therapy due to her overall health problems, according to family. PAST SURGICAL HISTORY: As above. PERSONAL AND SOCIAL HISTORY: As above. MEDICATIONS: Home and current medications are reviewed. ALLERGIES: NKDA. PHYSICAL EXAMINATION: An elderly woman who is mildly tachypneic. Vital signs noted. HEENT: Normocephalic. Oral exam unremarkable. NECK: Supple. CVS: First and second heart sounds reveal tachycardia. RESPIRATORY: Shows increase in AP diameter of chest. Breath sounds are diminished. Bilateral fairly diffuse rhonchi and crackles are heard. ABDOMEN: Soft. EXTREMITIES: No significant edema is noted. LABORATORY DATA AND TESTS: X-rays and labs were all reviewed. ASSESSMENT: This is a 73 year old woman admitted with: 1) Acute on chronic hypoxic respiratory failure. 2) Multilobar right lung pneumonia, probably post-influenza. 3) Chronic obstructive pulmonary disease with exacerbation. 4) Renal failure acute versus chronic. 5) Sepsis with elevated lactic acid level. 6) History of breast cancer with recurrence and frailty. RECOMMENDATIONS: 1) I agree with current treatment. 2) Agree with IV Vancomycin and Levaquin. 3) Continue IV steroids. 4) Continue bronchodilators. 5) I believe the patient will oxygenate and ventilate better with BiPAP. However anxiety is limiting factor. In view of this, I have added Ativan 1 mg IV every four hours PRN to alleviate anxiety. 6) Continue deep venous thrombosis and GI prophylaxis. 7) Will repeat labs and x-ray in the a.m. 8) Continue hydration. 9) If the patient's urinary output/renal function worsens, she may have to be transferred. 10) Most importantly in presence of patient's daughter, I asked the patient regarding her wishes about code status and she wishes to remain a full code. I will respect patient's wishes at this time. Continue aggressive therapy with hope of clinical improvement. Thank you, Dr. Angela, for allowing me to participate in the care of Nely Zarate.
[2018-06-18] MEDS ORDERED: Sodium Chloride 0.9% 500 ML 500 ML IV ONE (16:00)
[2018-06-18 16:15] LABS: Hematocrit 35.7 % (35-47); Hemoglobin 11.4 gm/dl (12.0-16.0); Mean Cell Volume 91.3 fl (78-100); Mean Corpuscular Hgb Concent. 31.9 g/dl (32-36); Mean Platelet Volume 12.4 fl (6-9.5); Platelet Count 196 K/mm3 (150-450); Red Blood Count 3.91 M/mm3 (4.1-5.4); Red Cell Distribution Width 16.6 % (11.5-14.0); White Blood Count 16.6 K/mm3 (4.0-10.5)
[2018-06-18 16:26] LABS: Mean Corpuscular Hemoglobin 29.1 pg (26-32)
[2018-06-18 16:34] LABS: ALBUMIN 2.6 g/dL (3.5-5.0); ANION GAP 19.5 MEQ/L (5-15); BILIRUBIN,TOTAL 0.3 mg/dL (0.2-1.3); Calcium 7.3 mg/dL (8.4-10.2); Creatinine 1 3.11 mg/dL (0.52-1.04); Potassium 4.5 mmol/L (3.5-5.1); Total Protein 5.4 g/dL (6.3-8.2)
[2018-06-18 23:24] LABS: A-aADO2 555; ABG HEMOGLOBIN 11.3; ABG POTASSIUM 5.2 (3.5-5.1); ARTERIAL BLD GAS O2 SATURATION 99.5 % (95-100); ARTERIAL BLOOD GAS BASE EXCESS -14.3 (-2.0-2.0); ARTERIAL BLOOD GAS FIO2 100 %; ARTERIAL BLOOD GAS PCO2 31 mmHg (35-45); ARTERIAL BLOOD GAS PO2 119 mmHg (75-100); CARBOXYHEMOGLOBIN 1.3 % THgb (0.0-6.9); HCO3- 12.4 (22-28); HGB O2 SAT 97.7 g/dF (94-100); Methhemoglobin 0.6 % (1.4-1.5); paO2 pAO1 0.18
[2018-06-18 23:25] LABS: ABG SITE LEFT BRACHIAL; ARTERIAL BLOOD GAS pH 7.21 (7.35-7.45)
[2018-06-18] MEDS ORDERED: Sodium Chloride 0.9% 250 ML 250 ML IV ONE ×2 (23:38→23:50)
[2018-06-18] MEDS ORDERED: Versed 50 MG/ 10 Ml MDV*** 50 MG in Sodium Chloride 0.9% 250 ML 240 ML IV PRN (23:41)
[2018-06-18] MEDS ORDERED: SUBLIMAZE 1000 Mcg/ 20 Ml*** 1,500 MCG in Sodium Chloride 0.9% 150 ML 120 ML IV SCH (23:45)
[2018-06-18] MEDS ORDERED: FENTANYL 500 MCG/10 ML VIAL IV ONE (23:48)
[2018-06-18] MEDS ORDERED: Versed 50 MG/ 10 Ml MDV IV ONE (23:58)
[2018-06-19] MEDS: LEVOPHED 4 MG/4 ML 4,000 MCG in Dextrose 5%/Water IV Soln. 500 ML 500 ML IV PRN ×2 (00:15→11:03)
[2018-06-19] MEDS: SUBLIMAZE 100 MCG/2 ML IV PRN (00:25)
[2018-06-19] MEDS ORDERED: Nimbex 20MG/10 Ml Vial (HIGH RISK MED) IV ONE (00:30)
[2018-06-19] MEDS: solu-MEDROL 125 MG IV SCH ×2 (00:52→06:28)
[2018-06-19] MEDS ORDERED: SODIUM BICARBONATE 50 MEQ/50 ML ABBOJECT IV ONE (02:31)
[2018-06-19] MEDS: Ativan 2 MG/1 ML VIAL IV PRN (02:45)
[2018-06-19 02:53] LABS: A-aADO2 558; ABG POTASSIUM 5.2 (3.5-5.1); ARTERIAL BLD GAS O2 SATURATION 98.2 % (95-100); ARTERIAL BLD GAS TIDAL VOLUME 550 cc; ARTERIAL BLOOD GAS BASE EXCESS -16.3 (-2.0-2.0); ARTERIAL BLOOD GAS FIO2 100 %; ARTERIAL BLOOD GAS PCO2 46 mmHg (35-45); ARTERIAL BLOOD GAS PEEP 5 cmH2O; ARTERIAL BLOOD GAS PO2 98 mmHg (75-100); ARTERIAL BLOOD GAS VENT MODE A/C; CARBOXYHEMOGLOBIN 1.4 % THgb (0.0-6.9); HCO3- 13.3 (22-28); HGB O2 SAT 95.8 g/dF (94-100); Methhemoglobin 1.1 % (1.4-1.5); paO2 pAO1 0.15
[2018-06-19 02:54] LABS: ABG SITE LEFT RADIAL; ALLEN TEST OK? YES; ARTERIAL BLOOD GAS VENT RATE 16 /MIN; ARTERIAL BLOOD GAS pH 7.07 (7.35-7.45)
[2018-06-19] MEDS: PROVENTIL 2.5 MG/3 ML NEB IH SCH (03:39)
[2018-06-19] MEDS: Vitamin C 500 MG PO SCH (04:13)
[2018-06-19] MEDS: ELIQUIS 2.5 MG TABLET PO SCH (04:13)
[2018-06-19] MEDS: Sodium Chloride 0.9% 500 ML 500 ML IV SCH ×3 (05:18→05:20)
[2018-06-19] MEDS: Sodium Chloride 0.9% 1000 ML 1,000 ML IV SCH ×2 (05:19→08:51)
[2018-06-19] MEDS ORDERED: Sodium Chloride 3 ML UD NEBULES IH ONE (05:40)
[2018-06-19 05:51] LABS: Hematocrit 32.6 % (35-47); Hemoglobin 10.3 gm/dl (12.0-16.0); Mean Cell Volume 94.5 fl (78-100); Mean Corpuscular Hgb Concent. 31.6 g/dl (32-36); Mean Platelet Volume 13.6 fl (6-9.5); Platelet Count 195 K/mm3 (150-450); Red Blood Count 3.45 M/mm3 (4.1-5.4); Red Cell Distribution Width 16.9 % (11.5-14.0); White Blood Count 20.6 K/mm3 (4.0-10.5)
[2018-06-19 06:11] LABS: A-aADO2 545; ABG HEMOGLOBIN 10.8; ABG POTASSIUM 5.5 (3.5-5.1); ARTERIAL BLD GAS TIDAL VOLUME 550 cc; ARTERIAL BLOOD GAS BASE EXCESS -14.1 (-2.0-2.0); ARTERIAL BLOOD GAS FIO2 100 %; ARTERIAL BLOOD GAS PCO2 30 mmHg (35-45); ARTERIAL BLOOD GAS PEEP 5 cmH2O; ARTERIAL BLOOD GAS PO2 131 mmHg (75-100); ARTERIAL BLOOD GAS VENT MODE A/C; CARBOXYHEMOGLOBIN 1.4 % THgb (0.0-6.9); HCO3- 12.3 (22-28); HGB O2 SAT 98.5 g/dF (94-100); Methhemoglobin 0.2 % (1.4-1.5); paO2 pAO1 0.19
[2018-06-19 06:11] LABS: ALBUMIN 2.3 g/dL (3.5-5.0); ANION GAP 19.8 MEQ/L (5-15); BILIRUBIN,TOTAL 0.5 mg/dL (0.2-1.3); Calcium 6.3 mg/dL (8.4-10.2); Creatinine 1 3.81 mg/dL (0.52-1.04); Potassium 5.1 mmol/L (3.5-5.1); Total Protein 5.1 g/dL (6.3-8.2)
[2018-06-19 06:12] LABS: ABG SITE LEFT RADIAL; ALLEN TEST OK? YES; ARTERIAL BLOOD GAS VENT RATE 30 /MIN; ARTERIAL BLOOD GAS pH 7.22 (7.35-7.45)
[2018-06-19 06:46] LABS: Mean Corpuscular Hemoglobin 29.8 pg (26-32)
[2018-06-19] MEDS: DUONEB 0.5-3 MG/3 ml Neb IH SCH ×2 (07:29→10:56)
[2018-06-19 07:52] LABS: BAND 19 % (0.0-2.0); Lymphocytes 1 % (24-44); Metamyelocyte 2 %; Monocyte 2 % (0.0-12.0); Neutrophils 76 % (36.0-66.0); Total Cells Counted 100
[2018-06-19 07:54] LABS: Platelet Estimate NORMAL (NORMAL)
[2018-06-19] MEDS ORDERED: ENOXAPARIN SODIUM SQ ONE (08:31)
[2018-06-19] MEDS ORDERED: PROTONIX 40 MG IV IV ONE (08:31)
--- NOTE | 2018-06-19 08:44 | XRAY ---
Indication: Endotracheal tube and OG tube placement. Comparison: One day earlier. Portable chest demonstrates new endotracheal tube tip 2 cm above the meena and new OG tube traversing the chest with the tip not included in the [id number] but presumed in the stomach. Remaining chest demonstrates worsening right lung consolidating airspace disease with effusion. Remaining heart and left lung unremarkable. Comment: Preliminary interpretation was made by [facility]. No critical discrepancy.
--- NOTE | 2018-06-19 08:46 | XRAY ---
Indication: Pneumonia. Comparison: Taken earlier in the day. Portable chest demonstrates continued worsening diffuse right lung consolidating airspace disease with effusion. Remaining heart and left lung unremarkable. Stable endotracheal tube and OG tube in situ.
--- NOTE | 2018-06-19 08:47 | PCM.DS ---
Discharge Summary Date of Admission: 06/17/18 14:30 Admitting Physician: BELLA CORMIER Consults: Consults on Case 06/18/18 08:01 Consult Pulmonology ROUTINE Primary Care Provider: BELLA CORMIER Allergies Allergies No Known Drug Allergies Allergy (Unverified 06/04/18 15:42) Hospital Summary - Hospital Course Hospital Course: patient was admitted with pneumonia and sepsis, developed respiratory failure and renal failure. was seen by Dr Fields, has been on levaquin and vanc, became acidotic and developed respiratory failure and was intubated last night. has negligible urine output and currently on levophed drip at 5mcg/min - Vitals & Intake/Output Vital Signs: Vital Signs Temperature 99.7 F 06/19/18 07:53 Pulse Rate 123 H 06/19/18 07:53 Respiratory Rate 30 H 06/19/18 07:53 Blood Pressure 93/62 06/19/18 07:53 O2 Sat by Pulse Oximetry 93 L 06/19/18 07:53 Oxygen-Last Documented O2 Percentage 100% Intake & Output: Intake & Output 06/16/18 06/17/18 06/18/18 06/19/18 11:59 11:59 11:59 11:59 Intake Total 1564 4094 Output Total 205 250 Balance 1359 3844 Weight 73.9 kg 79.4 kg - Lab Result Diagrams: 06/19/18 05:25 06/19/18 05:25 Lab Results-Last 24 Hrs: Accuchecks Date 06/19/18 Time 06:59 Lab Results-Last 24 Hours 06/18/18 06/18/18 06/18/18 Range/Units 13:55 16:12 16:12 WBC 16.6 H (4.0-10.5) K/mm3 RBC 3.91 L (4.1-5.4) M/mm3 Hgb 11.4 L (12.0-16.0) gm/dl Hct 35.7 (35-47) % MCV 91.3 (78-100) fl MCH 29.1 (26-32) pg MCHC 31.9 L (32-36) g/dl RDW 16.6 H (11.5-14.0) % Plt Count 196 (150-450) K/mm3 MPV 12.4 H (6-9.5) fl Segmented Neutrophils (36.0-66.0) % Band Neutrophils (0.0-2.0) % Lymphocytes (Manual) (24-44) % Monocytes (Manual) (0.0-12.0) % Metamyelocytes % Platelet Estimate (NORMAL) RBC Morphology Puncture Site RIGHT RADIAL pCO2 33 L (35-45) mmHg pO2 88 (75-100) mmHg Base Excess -8.1 L (-2.0-2.0) O2 Saturation 95.9 (94-100) g/dF ABG pH 7.32 L (7.35-7.45) ABG HCO3 17.0 L (22-28) ABG O2 Sat (Measured) 98.1 (95-100) % Ori Test YES A-a Gradient 584 a/A Ratio 0.13 Hemoglobin 12.4 Carboxyhemoglobin 1.0 (0.0-6.9) % THgb Methemoglobin 1.2 L (1.4-1.5) % Potassium 4.1 4.5 (3.5-5.1) Temperature 37.0 C POC O2 Flow Rate 100 % Vent Mode Vent Rate /MIN Tidal Volume cc PEEP cmH2O Inspiratory BiPAP Expiratory BiPAP Sodium 136 L (137-145) mmol/L Chloride 105 (98-107) mmol/L Carbon Dioxide 16 L* (22-30) mmol/L Anion Gap 19.5 H (5-15) MEQ/L BUN 59 H (7-17) mg/dL Creatinine 3.11 H (0.52-1.04) mg/dL Estimated GFR 15.6 ML/MIN Glucose 236 H (74-106) mg/dL Calcium 7.3 L (8.4-10.2) mg/dL Total Bilirubin 0.30 (0.2-1.3) mg/dL AST 18 (14-36) U/L ALT 18 (0-35) U/L Alkaline Phosphatase 72 (38-126) U/L NT-Pro-B Natriuret Pep (0-900) pg/mL Serum Total Protein 5.4 L (6.3-8.2) g/dL Albumin 2.6 L (3.5-5.0) g/dL 06/18/18 06/19/18 06/19/18 Range/Units 23:16 02:16 05:25 WBC 20.6 H (4.0-10.5) K/mm3 RBC 3.45 L (4.1-5.4) M/mm3 Hgb 10.3 L (12.0-16.0) gm/dl Hct 32.6 L (35-47) % MCV 94.5 (78-100) fl MCH 29.8 (26-32) pg MCHC 31.6 L (32-36) g/dl RDW 16.9 H (11.5-14.0) % Plt Count 195 (150-450) K/mm3 MPV 13.6 H (6-9.5) fl Segmented Neutrophils 76 H (36.0-66.0) % Band Neutrophils 19 H (0.0-2.0) % Lymphocytes (Manual) 1 L (24-44) % Monocytes (Manual) 2 (0.0-12.0) % Metamyelocytes 2 % Platelet Estimate NORMAL (NORMAL) RBC Morphology NORMAL Puncture Site LEFT BRACHIAL LEFT RADIAL pCO2 31 L 46 H (35-45) mmHg pO2 119 H 98 (75-100) mmHg Base Excess -14.3 L -16.3 L (-2.0-2.0) O2 Saturation 97.7 95.8 (94-100) g/dF ABG pH 7.21 L* 7.07 L* (7.35-7.45) ABG HCO3 12.4 L* 13.3 L* (22-28) ABG O2 Sat (Measured) 99.5 98.2 (95-100) % Ori Test NOT APPLICABLE YES A-a Gradient 555 558 a/A Ratio 0.18 0.15 Hemoglobin 11.3 11.0 Carboxyhemoglobin 1.3 1.4 (0.0-6.9) % THgb Methemoglobin 0.6 L 1.1 L (1.4-1.5) % Potassium 5.2 H 5.2 H (3.5-5.1) Temperature 37.0 37.0 C POC O2 Flow Rate 100 100 % Vent Mode A/C Vent Rate 16 /MIN Tidal Volume 550 cc PEEP 5 cmH2O Inspiratory BiPAP 12 Expiratory BiPAP 6 Sodium (137-145) mmol/L Chloride (98-107) mmol/L Carbon Dioxide (22-30) mmol/L Anion Gap (5-15) MEQ/L BUN (7-17) mg/dL Creatinine (0.52-1.04) mg/dL Estimated GFR ML/MIN Glucose (74-106) mg/dL Calcium (8.4-10.2) mg/dL Total Bilirubin (0.2-1.3) mg/dL AST (14-36) U/L ALT (0-35) U/L Alkaline Phosphatase (38-126) U/L NT-Pro-B Natriuret Pep (0-900) pg/mL Serum Total Protein (6.3-8.2) g/dL Albumin (3.5-5.0) g/dL 06/19/18 06/19/18 Range/Units 05:25 06:05 WBC (4.0-10.5) K/mm3 RBC (4.1-5.4) M/mm3 Hgb (12.0-16.0) gm/dl Hct (35-47) % MCV (78-100) fl MCH (26-32) pg MCHC (32-36) g/dl RDW (11.5-14.0) % Plt Count (150-450) K/mm3 MPV (6-9.5) fl Segmented Neutrophils (36.0-66.0) % Band Neutrophils (0.0-2.0) % Lymphocytes (Manual) (24-44) % Monocytes (Manual) (0.0-12.0) % Metamyelocytes % Platelet Estimate (NORMAL) RBC Morphology Puncture Site LEFT RADIAL pCO2 30 L (35-45) mmHg pO2 131 H* (75-100) mmHg Base Excess -14.1 L (-2.0-2.0) O2 Saturation 98.5 (94-100) g/dF ABG pH 7.22 L* (7.35-7.45) ABG HCO3 12.3 L* (22-28) ABG O2 Sat (Measured) 100.0 (95-100) % Ori Test YES A-a Gradient 545 a/A Ratio 0.19 Hemoglobin 10.8 Carboxyhemoglobin 1.4 (0.0-6.9) % THgb Methemoglobin 0.2 L (1.4-1.5) % Potassium 5.1 5.5 H (3.5-5.1) Temperature 37.0 C POC O2 Flow Rate 100 % Vent Mode A/C Vent Rate 30 /MIN Tidal Volume 550 cc PEEP 5 cmH2O Inspiratory BiPAP Expiratory BiPAP Sodium 136 L (137-145) mmol/L Chloride 107 (98-107) mmol/L Carbon Dioxide 14 L* (22-30) mmol/L Anion Gap 19.8 H (5-15) MEQ/L BUN 72 H (7-17) mg/dL Creatinine 3.81 H (0.52-1.04) mg/dL Estimated GFR 12.3 ML/MIN Glucose 234 H (74-106) mg/dL Calcium 6.3 L (8.4-10.2) mg/dL Total Bilirubin 0.50 (0.2-1.3) mg/dL AST 113 H (14-36) U/L ALT 52 H (0-35) U/L Alkaline Phosphatase 138 H (38-126) U/L NT-Pro-B Natriuret Pep 1920 H (0-900) pg/mL Serum Total Protein 5.1 L (6.3-8.2) g/dL Albumin 2.3 L (3.5-5.0) g/dL Micro Results-Entire Visit: Microbiology 06/17/18 12:35 Blood Culture Gram Stain - Final Blood Blood Culture - Preliminary GRAM POSITIVE ID AND SENSITIVITY PENDING 06/17/18 12:30 Blood Culture - Preliminary Blood NO GROWTH TO DATE Accuchecks Date 06/19/18 Time 06:59 - Radiology Exams Ordered Rad Exams-Entire Visit: Radiology Procedures Category Date Time Status CHEST 1 VIEW (PORTABLE) Routine Exams 06/18/18 08:02 Completed CHEST 1 VIEW (PORTABLE) Routine Exams 06/19/18 08:00 Taken CHEST 1 VIEW (PORTABLE) Stat Exams 06/17/18 12:15 Completed CHEST 1 VIEW (PORTABLE) Stat Exams 06/19/18 00:46 Taken - Procedures and Test Procedures and Tests throughout Hospitalization: Therapy Orders & Screens 06/17/18 12:16 BiPap/CPAP STAT Comment: 06/17/18 12:38 Respiratory Therapy Assessment DAILY Comment: Diagnosis: Shortness of Breath 06/17/18 13:43 Oxygen Venti-Mask 40% Comment: Diagnosis: Shortness of Breath 06/17/18 15:05 Respiratory Therapy Assessment DAILY Comment: Diagnosis: Shortness of Breath 06/17/18 16:00 RT Screen per Nursing Assess ONCE Comment: Protocol Order Physician Instructions: Greater than 3 points order RT Admission Screen Reason For Exam: Triggered on Admission Diagnosis: Right sided pneumonia Diagnosis: Right sided pneumonia Pneumonia: Yes Home O2: Yes Asthma: No CHF: No Home CPAP/BIPAP: Yes Home Nebs/MDI: Yes Total Points: 18 06/18/18 02:28 Oxygen High Flow per RT 50% Comment: Diagnosis: Right sided pneumonia 06/18/18 09:26 Peak Expiratory Flow Rate ONCE Comment: Reason For Exam: Diagnosis: Right sided pneumonia 06/18/18 14:50 BiPap/CPAP ROUTINE Comment: I=12, E=6 FiO2 100% RR 14 Diagnosis: Right sided pneumonia 06/18/18 15:51 EKG ROUTINE Comment: Diagnosis: Right sided pneumonia 06/19/18 00:15 Intubation [Ventilator Management] Q4H Comment: Diagnosis: Right sided pneumonia 06/19/18 00:20 Standby STAT Comment: Diagnosis: Right sided pneumonia 06/19/18 00:40 Intubate Patient STAT Comment: Diagnosis: Right sided pneumonia 06/19/18 04:20 Oxygen Non-rebreather 15% Comment: Diagnosis: Right sided pneumonia Discharge Exam General Appearance: other (intubated, sedated and on ventilator) Skin Exam: normal color Respiratory Exam: crackles/rales, rhonchi Cardiovascular Exam: regular rate/rhythm, normal heart sounds Gastrointestinal/Abdomen Exam: soft, normal bowel sounds Extremity Exam: normal inspection Final Diagnosis/Problem List - Final Discharge Diagnosis/Problem (1) Septic shock Current Visit: Yes Status: Acute Assessment & Plan: on ventilator, levophed drip at this time. spoke with Dr Huff at [facility] after discussion with Dr Fields. updated patient's daughter about her poor prognosis and she reinforced patient refuses to go to [facility] and prefers [facility]. her prognosis is poor and she is critically ill at this time. code status remains full, prognosis is guarded. Code(s): A41.9 - SEPSIS, UNSPECIFIED ORGANISM; R65.21 - SEVERE SEPSIS WITH SEPTIC SHOCK (2) Acute on chronic renal failure Current Visit: Yes Status: Acute Code(s): N17.9 - ACUTE KIDNEY FAILURE, UNSPECIFIED; N18.9 - CHRONIC KIDNEY DISEASE, UNSPECIFIED (3) Pneumonia Current Visit: Yes Status: Acute Code(s): J18.9 - PNEUMONIA, UNSPECIFIED ORGANISM (4) COPD exacerbation Current Visit: No Status: Chronic Code(s): J44.1 - CHRONIC OBSTRUCTIVE PULMONARY DISEASE W (ACUTE) EXACERBATION - Discharge Disposition: DC TO [facility] Condition: Serious Prescriptions: No Action Tiotropium [place] Inhaler [Spiriva 18 Mcg/Cap Inhaler] 1 puff IH DAILY Ranitidine HCl [Zantac] 150 mg PO DAILY Potassium 99 mg PO BID Levothyroxine Sodium 75 mcg PO DAILY Cetirizine HCl [Allergy Relief] 10 mg PO DAILY PRN PRN Reason: Allergies Allopurinol 300 mg [Zyloprim 300 mg] 300 mg PO DAILY Albuterol 2.5 mg/3 ml Neb [Proventil 2.5 mg/3 ml Neb] 2.5 mg IH Q4H PRN PRN PRN Reason: Shortness Of Breath/Wheezing Theophylline Anhydrous 300 mg* [Theodur 300MG] 300 mg PO DAILY Amlodipine Besylate 5 mg PO DAILY Ascorbic Acid [Vitamin C] 500 mg PO BID Albuterol 8 gm Mdi Hfa [Ventolin Hfa MDI] 90 mcg IH Q4-6HPRN PRN PRN Reason: Shortness Of Breath Prednisone 20 mg [Deltasone 20 mg] 20 mg PO UD #18 tablet Apixaban [Eliquis] 5 mg PO BID #60 tablet
[2018-06-19] MEDS: Pepcid 20 MG PO SCH (08:52)
[2018-06-19] MEDS: THEOPHYLLINE ER 24HR PO SCH (08:52)
[2018-06-19] MEDS: SYNTHROID 75 MCG PO SCH (08:52)
[2018-06-19] MEDS ORDERED: LEVOFLOXACIN 750MG/150ML D5W 750 MG/150 ML BAG IV SCH (10:00)
[2018-06-19 11:05] VITALS: BP 104/49
[2018-06-19 18:47] VITALS: PULSE 125; O2SAT 91
== END 2018-06-19 11:20 | disposition home or self-care (01) | DRG 871 ==
LOC: ED 12:10 → ICU 14:30
PROVIDERS: ADMIT Family Medicine; ATTEND Family Medicine
DX: A41.9 Sepsis, unspecified organism (principal); R65.21 Severe sepsis with septic shock; J18.9 Pneumonia, unspecified organism; J96.00 Acute respiratory failure, unspecified whether with hypoxia or hypercapnia; N17.9 Acute kidney failure, unspecified; J44.1 Chronic obstructive pulmonary disease with (acute) exacerbation; R06.03 Acute respiratory distress; N18.9 Chronic kidney disease, unspecified; C50.911 Malignant neoplasm of unspecified site of right female breast; R07.9 Chest pain, unspecified; Z79.899 Other long term (current) drug therapy; Z99.81 Dependence on supplemental oxygen; R74.0 Nonspecific elevation of levels of transaminase and lactic acid dehydrogenase [LDH]
CPT/HCPCS: 31500; 36000; 36415; 36600; 71045; 80048; 80053; 80307; 81001; 82375; 82550; 82803; 83605; 83690; 83735; 83880; 84484; 85025; 85027; 85610; 85730; 87040; 87077; 87186; 93005; 93041; 94002; 94640; 94799; 96360; 96365; 96374; 99285; 99291; J1650; J1940; J1956; J2060; J2250; J2930; J3010; J3370; J7609; A9270-GY